=== PATIENT | female | born 1975 | race Caucasian/White ===

== ENCOUNTER 2018-09-06 17:06 | Emergency (ER) | payer OTHER ==
[2018-09-06 17:32] VITALS: BP 149/96
--- NOTE | 2018-09-06 18:08 | EDM.PDOC ---
ED HPI GENERAL MEDICAL PROBLEM - General Chief Complaint: ENT Problem Stated Complaint: EAR IS BLEEDING Time Seen by Provider: 09/06/18 17:45 Source of Information: Reports: Patient History Limitations: Reports: No Limitations - History of Present Illness INITIAL COMMENTS - FREE TEXT/NARRATIVE: 42-year-old female with right ear discomfort, with bleeding over the past 24-48 hours. She's also had some intermittent lower abdominal and pelvic discomfort no dysuria. She has a full physical scheduled in 2 days for a preoperative exam. She has no decreased hearing, or cold symptoms. She has not been swimming or submersed in water. She is not a diabetic Onset: Gradual Duration: Day(s): (Over the past 2 days) - Related Data Allergies Allergy/AdvReac Type Severity Reaction Status Date / Time No Known Allergies Allergy Verified 08/03/18 15:35 Home Meds: Home Meds Cyclobenzaprine [Flexeril] 10 mg PO TID PRN 02/02/16 [History] QUEtiapine [SEROquel XR] 225 mg PO BEDTIME 02/02/16 [History] Sertraline [Zoloft] 200 mg PO DAILY 02/02/16 [History] Venlafaxine [Effexor XR] 2 tab PO BID 02/02/16 [History] ALPRAZolam [Xanax] 0.5 mg PO QID PRN 12/25/17 [History] Hydroxychloroquine Sulfate [Plaquenil] 200 mg PO DAILY 12/25/17 [History] Ibuprofen [Motrin Ib] 800 mg PO TID PRN 12/25/17 [History] Lisinopril/Hydrochlorothiazide [Lisinopril-Hctz 20-12.5 mg Tab] 1 each PO DAILY 12/25/17 [History] Metoprolol Succinate [Toprol Xl] 25 mg PO DAILY 12/25/17 [History] medroxyPROGESTERone Acetate [Depo-Provera] 150 mg IM Q90D 12/25/17 [History] predniSONE [Prednisone] 10 mg PO DAILY 12/25/17 [History] Past Medical History HEENT History: Reports: Impaired Vision Cardiovascular History: Reports: Hypertension Gastrointestinal History: Reports: None Musculoskeletal History: Reports: Arthritis, RA Neurological History: Reports: Migraines Psychiatric History: Reports: Anxiety, Depression Endocrine/Metabolic History: Reports: Obesity/BMI 30+ - Infectious Disease History Infectious Disease History: Reports: Chicken Pox, Measles - Past Surgical History Head Surgeries/Procedures: Reports: None HEENT Surgical History: Reports: None Cardiovascular Surgical History: Reports: None GI Surgical History: Reports: Appendectomy Endocrine Surgical History: Reports: None Neurological Surgical History: Reports: None Musculoskeletal Surgical History: Reports: Other (See Below) Other Musculoskeletal Surgeries/Procedures:: Left rotator cuff repair 2005, 2017. Right rotator cuff repair 2014 Dermatological Surgical History: Reports: None Social & Family History - Family History Cardiac: Reports: Blood Clots/VTE/DVT, Hypertension, [place] Musculoskeletal: Reports: Arthritis Neurological: Reports: Migraines Oncologic: Reports: Lung - Tobacco Use Smoking Status *Q: Never Smoker - Caffeine Use Caffeine Use: Reports: Soda ED ROS ENT - Review of Systems Review Of Systems: See Below Constitutional: Denies: Fever, Chills HEENT: Reports: Ear Discharge (Bleeding from the right ear), Ear Pain Respiratory: Denies: Shortness of Breath, Cough Cardiovascular: Denies: Chest Pain GI/Abdominal: Reports: Abdominal Pain (Lower abdomen and pelvic discomfort intermittent) : Denies: Dysuria, Frequency ED EXAM, ENT - Physical Exam Exam: See Below Exam Limited By: No Limitations General Appearance: Alert, No Apparent Distress Ears: Other (Left tympanic membrane is normal, the right tympanic membrane appears normal but the canal is very reddened, hemorrhagic and swollen) Head: Atraumatic Respiratory/Chest: No Respiratory Distress GI/Abdominal: Non-Tender, Other (Morbidly obese) Course - Vital Signs Last Recorded V/S: Last Vital Signs Temp 97.3 F 09/06/18 17:30 Pulse 106 H 09/06/18 17:30 Resp 14 09/06/18 17:30 BP 149/96 H 09/06/18 17:30 Pulse Ox 97 09/06/18 17:30 - Orders/Labs/Meds Labs: Laboratory Tests 09/06/18 Range/Units 17:23 Urine Color Yellow Urine Appearance Slightly cloudy Urine pH 5.0 (4.5-8.0) Ur Specific [place] 1.025 (1.008-1.030) Urine Protein 30 H (NEGATIVE) mg/dL Urine Glucose (UA) Normal (NEGATIVE) mg/dL Urine Ketones Negative (NEGATIVE) mg/dL Urine Occult Blood Negative (NEGATIVE) Urine Nitrite Negative (NEGATIVE) Urine Bilirubin Negative (NEGATIVE) Urine Urobilinogen Normal (NORMAL) mg/dL Ur Leukocyte Esterase Moderate (NEGATIVE) Urine RBC 0-5 (0-5) Urine WBC 5-10 H (0-5) Ur Epithelial Cells Many Amorphous Sediment Not seen Urine Bacteria Moderate Urine Mucus Moderate Urine Other Meds: Medications Discontinued Medications Generic Name Dose Route Start Last Admin Trade Name Shruthi PRN Reason Stop Dose Admin Ketorolac Tromethamine 60 mg 09/06/18 18:15 09/06/18 18:20 Toradol IM 09/06/18 18:16 60 mg ONETIME ONE Administration - Re-Assessments/Exams Free Text/Narrative Re-Assessment/Exam: 09/06/18 18:06 Patient will be started on Cortisporin ear drops 4 times a day to the right ear , along with Augmentin 875 mg twice daily for 1 week. She'll keep her appointment for her physical in 2 days as scheduled, keep the ear dry. A UA was obtained which showed no evidence of infection. Departure - Departure Time of Disposition: 18:20 Disposition: Home, Self-Care 01 Condition: Good Clinical Impression: Right otitis externa Qualifiers: Otitis externa type: hemorrhagic Chronicity: acute Qualified Code(s): H60.321 - Hemorrhagic otitis externa, right ear - Discharge Information Instructions: Otitis Externa, [id number] Referrals: Shayne Varela PA-C [Primary Care Provider] - Forms: ED Department Discharge Care Plan Goals: Use drops 4 times a day for the next 5-7 days, and take antibiotic twice daily with food for 7 days. Try to keep the ear dry, and return if worsening despite treatment. Otherwise keep your appointment for your physical on Saturday as scheduled.
[2018-09-06] MEDS ORDERED: Ketorolac 60 MG/2 ML SDV IM ONE (18:15)
== END 2018-09-06 18:21 | disposition home or self-care (01) ==
LOC: JP.ED 17:06
DX: H60.321 Hemorrhagic otitis externa, right ear (principal); I10 Essential (primary) hypertension; F41.9 Anxiety disorder, unspecified; F32.9 Major depressive disorder, single episode, unspecified; Z79.899 Other long term (current) drug therapy
CPT/HCPCS: 81001; 96372; 99283; J1885

== ENCOUNTER 2018-12-13 12:09 | Emergency (ER) | payer OTHER ==
[2018-12-13 12:25] VITALS: BP 104/40
--- NOTE | 2018-12-13 13:44 | EDM.PDOCBH ---
ED HPI GENERAL MEDICAL PROBLEM - General Chief Complaint: Behavioral/Psych Stated Complaint: DIZZY, HOLUCINATING Time Seen by Provider: 12/13/18 13:40 Source of Information: Reports: Patient History Limitations: Reports: No Limitations - History of Present Illness INITIAL COMMENTS - FREE TEXT/NARRATIVE: pt was found by her mother halluncinating and her speech was very slurred. She has not taken any new meds or her doses have not been changed recently. Onset: Today, Other (pt was found by her mother hallucinating. ) Duration: Hour(s): Location: Reports: Head Associated Symptoms: Reports: Confusion - Related Data Allergies Allergy/AdvReac Type Severity Reaction Status Date / Time No Known Allergies Allergy Verified 12/13/18 12:26 Home Meds: Home Meds Cyclobenzaprine [Flexeril] 10 mg PO TID PRN 02/02/16 [History] QUEtiapine [SEROquel XR] 225 mg PO BEDTIME 02/02/16 [History] Sertraline [Zoloft] 200 mg PO DAILY 02/02/16 [History] Venlafaxine [Effexor XR] 2 tab PO BID 02/02/16 [History] ALPRAZolam [Xanax] 0.5 mg PO QID PRN 12/25/17 [History] Hydroxychloroquine Sulfate [Plaquenil] 200 mg PO DAILY 12/25/17 [History] Ibuprofen [Motrin Ib] 800 mg PO TID PRN 12/25/17 [History] Lisinopril/Hydrochlorothiazide [Lisinopril-Hctz 20-12.5 mg Tab] 1 each PO DAILY 12/25/17 [History] Metoprolol Succinate [Toprol Xl] 25 mg PO DAILY 12/25/17 [History] medroxyPROGESTERone Acetate [Depo-Provera] 150 mg IM Q90D 12/25/17 [History] predniSONE [Prednisone] 10 mg PO DAILY 12/25/17 [History] oxyCODONE HCl/Acetaminophen [Oxycodone-Acetaminophen 5-325] 1 cap PO QID [History] Past Medical History HEENT History: Reports: Impaired Vision Cardiovascular History: Reports: Hypertension Gastrointestinal History: Reports: None Musculoskeletal History: Reports: Arthritis, RA Neurological History: Reports: Migraines Psychiatric History: Reports: Anxiety, Bipolar, Depression Endocrine/Metabolic History: Reports: Obesity/BMI 30+ - Infectious Disease History Infectious Disease History: Reports: Chicken Pox, Measles - Past Surgical History Head Surgeries/Procedures: Reports: None HEENT Surgical History: Reports: None Cardiovascular Surgical History: Reports: None GI Surgical History: Reports: Appendectomy Endocrine Surgical History: Reports: None Neurological Surgical History: Reports: None Musculoskeletal Surgical History: Reports: Other (See Below) Other Musculoskeletal Surgeries/Procedures:: Left rotator cuff repair 2005, 2017. Right rotator cuff repair 2013 Dermatological Surgical History: Reports: None Social & Family History - Family History Cardiac: Reports: Blood Clots/VTE/DVT, Hypertension, [place] Musculoskeletal: Reports: Arthritis Neurological: Reports: Migraines Oncologic: Reports: Lung - Tobacco Use Smoking Status *Q: Never Smoker - Caffeine Use Caffeine Use: Reports: Soda - Recreational Drug Use Recreational Drug Use: No ED ROS GENERAL - Review of Systems Review Of Systems: See Below Constitutional: Reports: No Symptoms HEENT: Reports: Other (mouth is very dry and her speech is slurry) Respiratory: Reports: No Symptoms Cardiovascular: Reports: No Symptoms Endocrine: Reports: No Symptoms GI/Abdominal: Reports: No Symptoms : Reports: No Symptoms Musculoskeletal: Reports: No Symptoms Skin: Reports: No Symptoms ED EXAM, BEHAVIORAL HEALTH - Physical Exam Exam: See Below Text/Narrative:: pt arrived with a history of hallucinating and being quite confused. She does have some depression and psych problems. She has not hallucinated in the past. She is on oxycodone and her bottle was filled on Saturday of this week and 53 tabs are gone. She is on plaequneil and motrin for her RA. Exam Limited By: Other (pt has a very dry mouth and her speech is slurred. She is having trouble giving answers --slow to respond.) General Appearance: Alert, Anxious, Other (Pt seemes agitated. ) Ears: Normal TMs Nose: Normal Inspection Throat/Mouth: Normal Inspection Head: Atraumatic Neck: Normal Inspection Respiratory/Chest: No Respiratory Distress Cardiovascular: Regular Rate, Rhythm GI/Abdominal: Soft, Non-Tender Rectal (Female) Exam: Deferred Back Exam: Normal Inspection Extremities: Normal Inspection Neurological: Alert, Normal Cognition COURSE, BEHAVIORAL HEALTH COMP - Course Vital Signs: Last Vital Signs Temp 35.7 C 12/13/18 12:24 Pulse 119 H 12/13/18 12:24 Resp 18 12/13/18 12:24 BP 104/40 L 12/13/18 12:24 Pulse Ox 96 12/13/18 12:24 Orders, Labs, Meds: Active Orders 24 hr Category Date Time Status Sodium Chloride 0.9% [Normal Saline] 1,000 ml Med 12/13/18 13:45 Active IV ASDIRECTED Sodium Chloride 0.9% [Normal Saline] 1,000 ml Med 12/13/18 14:45 Active IV ASDIRECTED Medication Orders Sodium Chloride (Normal Saline) 1,000 mls @ 999 mls/hr IV ASDIRECTED [facility] Last Admin: 12/13/18 14:04 Dose: 999 mls/hr Sodium Chloride (Normal Saline) 1,000 mls @ 999 mls/hr IV ASDIRECTED [facility] Laboratory Tests 12/13/18 12/13/18 12/13/18 Range/Units 13:07 13:07 13:07 WBC 12.8 H (4.5-11.0) K/uL RBC 3.68 (3.30-5.50) M/uL Hgb 10.3 L (12.0-15.0) g/dL Hct 32.3 L (36.0-48.0) % MCV 88 (80-98) fL MCH 28 (27-31) pg MCHC 32 (32-36) % Plt Count 423 H (150-400) K/uL Neut % (Auto) 91 H (36-66) % Lymph % (Auto) 2 L (24-44) % [place] % (Auto) 7 H (2-6) % Eos % (Auto) 0 L (2-4) % Baso % (Auto) 0 (0-1) % PT (9.5-12.0) sec INR (0.80-1.20) APTT (27.0-36.0) sec Sodium 135 L (140-148) mmol/L Potassium 4.1 (3.6-5.2) mmol/L Chloride 96 L (100-108) mmol/L Carbon Dioxide 19 L (21-32) mmol/L Anion Gap 24.1 H (5.0-14.0) mmol/L BUN 62 H (7-18) mg/dL Creatinine 9.5 H* (0.6-1.0) mg/dL Est Cr Clr Drug Dosing 7.62 mL/min Estimated GFR (MDRD) 4 L (>60) Glucose 91 (74-106) mg/dL Calcium 8.6 (8.5-10.1) mg/dL Total Bilirubin 0.2 (0.2-1.0) mg/dL AST 28 (15-37) U/L ALT 30 (12-78) U/L Alkaline Phosphatase 94 (46-116) U/L Total Protein 7.3 (6.4-8.2) g/dL Albumin 2.9 L (3.4-5.0) g/dL Globulin 4.4 H (2.3-3.5) g/dL Albumin/Globulin Ratio 0.7 L (1.2-2.2) TSH, Ultra Sensitive (0.358-3.740) uIU/mL Urine Color Urine Appearance Urine pH (4.5-8.0) Ur Specific [place] (1.008-1.030) Urine Protein (NEGATIVE) mg/dL Urine Glucose (UA) (NEGATIVE) mg/dL Urine Ketones (NEGATIVE) mg/dL Urine Occult Blood (NEGATIVE) Urine Nitrite (NEGATIVE) Urine Bilirubin (NEGATIVE) Urine Urobilinogen (NORMAL) mg/dL Ur Leukocyte Esterase (NEGATIVE) Urine RBC (0-5) Urine WBC (0-5) Ur Epithelial Cells Amorphous Sediment Urine Bacteria Urine Mucus Urine Opiates Screen (NEGATIVE) Ur Oxycodone Screen (NEGATIVE) Urine Methadone Screen (NEGATIVE) Ur Propoxyphene Screen (NEGATIVE) Acetaminophen (10.0-30.0) ug/mL Ur Barbiturates Screen (NEGATIVE) Ur Tricyclics Screen (NEGATIVE) Ur Phencyclidine Scrn (NEGATIVE) Ur Amphetamine Screen (NEGATIVE) U Methamphetamines Scrn (NEGATIVE) Urine MDMA Screen (NEGATIVE) U Benzodiazepines Scrn (NEGATIVE) U Cocaine Metab Screen (NEGATIVE) U Marijuana (THC) Screen (NEGATIVE) Ethyl Alcohol < 3 mg/dL 12/13/18 12/13/18 12/13/18 Range/Units 13:46 13:47 13:47 WBC (4.5-11.0) K/uL RBC (3.30-5.50) M/uL Hgb (12.0-15.0) g/dL Hct (36.0-48.0) % MCV (80-98) fL MCH (27-31) pg MCHC (32-36) % Plt Count (150-400) K/uL Neut % (Auto) (36-66) % Lymph % (Auto) (24-44) % [place] % (Auto) (2-6) % Eos % (Auto) (2-4) % Baso % (Auto) (0-1) % PT (9.5-12.0) sec INR (0.80-1.20) APTT (27.0-36.0) sec Sodium (140-148) mmol/L Potassium (3.6-5.2) mmol/L Chloride (100-108) mmol/L Carbon Dioxide (21-32) mmol/L Anion Gap (5.0-14.0) mmol/L BUN (7-18) mg/dL Creatinine (0.6-1.0) mg/dL Est Cr Clr Drug Dosing mL/min Estimated GFR (MDRD) (>60) Glucose (74-106) mg/dL Calcium (8.5-10.1) mg/dL Total Bilirubin (0.2-1.0) mg/dL AST (15-37) U/L ALT (12-78) U/L Alkaline Phosphatase (46-116) U/L Total Protein (6.4-8.2) g/dL Albumin (3.4-5.0) g/dL Globulin (2.3-3.5) g/dL Albumin/Globulin Ratio (1.2-2.2) TSH, Ultra Sensitive 0.781 (0.358-3.740) uIU/mL Urine Color Yellow Urine Appearance Cloudy Urine pH 5.0 (4.5-8.0) Ur Specific [place] 1.025 (1.008-1.030) Urine Protein Trace (NEGATIVE) mg/dL Urine Glucose (UA) Normal (NEGATIVE) mg/dL Urine Ketones Negative (NEGATIVE) mg/dL Urine Occult Blood Large (NEGATIVE) Urine Nitrite Negative (NEGATIVE) Urine Bilirubin Negative (NEGATIVE) Urine Urobilinogen Normal (NORMAL) mg/dL Ur Leukocyte Esterase Large (NEGATIVE) Urine RBC 20-30 H (0-5) Urine WBC >100 H (0-5) Ur Epithelial Cells Many Amorphous Sediment Not seen Urine Bacteria Many Urine Mucus Not seen Urine Opiates Screen Presumptive positive H (NEGATIVE) Ur Oxycodone Screen Presumptive positive H (NEGATIVE) Urine Methadone Screen Negative (NEGATIVE) Ur Propoxyphene Screen Negative (NEGATIVE) Acetaminophen (10.0-30.0) ug/mL Ur Barbiturates Screen Negative (NEGATIVE) Ur Tricyclics Screen Presumptive positive H (NEGATIVE) Ur Phencyclidine Scrn Negative (NEGATIVE) Ur Amphetamine Screen Negative (NEGATIVE) U Methamphetamines Scrn Presumptive positive H (NEGATIVE) Urine MDMA Screen Negative (NEGATIVE) U Benzodiazepines Scrn Presumptive positive H (NEGATIVE) U Cocaine Metab Screen Negative (NEGATIVE) U Marijuana (THC) Screen Negative (NEGATIVE) Ethyl Alcohol mg/dL 12/13/18 12/13/18 Range/Units 14:47 14:55 WBC (4.5-11.0) K/uL RBC (3.30-5.50) M/uL Hgb (12.0-15.0) g/dL Hct (36.0-48.0) % MCV (80-98) fL MCH (27-31) pg MCHC (32-36) % Plt Count (150-400) K/uL Neut % (Auto) (36-66) % Lymph % (Auto) (24-44) % [place] % (Auto) (2-6) % Eos % (Auto) (2-4) % Baso % (Auto) (0-1) % PT 10.9 (9.5-12.0) sec INR 0.99 (0.80-1.20) APTT 39.4 H (27.0-36.0) sec Sodium (140-148) mmol/L Potassium (3.6-5.2) mmol/L Chloride (100-108) mmol/L Carbon Dioxide (21-32) mmol/L Anion Gap (5.0-14.0) mmol/L BUN (7-18) mg/dL Creatinine (0.6-1.0) mg/dL Est Cr Clr Drug Dosing mL/min Estimated GFR (MDRD) (>60) Glucose (74-106) mg/dL Calcium (8.5-10.1) mg/dL Total Bilirubin (0.2-1.0) mg/dL AST (15-37) U/L ALT (12-78) U/L Alkaline Phosphatase (46-116) U/L Total Protein (6.4-8.2) g/dL Albumin (3.4-5.0) g/dL Globulin (2.3-3.5) g/dL Albumin/Globulin Ratio (1.2-2.2) TSH, Ultra Sensitive (0.358-3.740) uIU/mL Urine Color Urine Appearance Urine pH (4.5-8.0) Ur Specific [place] (1.008-1.030) Urine Protein (NEGATIVE) mg/dL Urine Glucose (UA) (NEGATIVE) mg/dL Urine Ketones (NEGATIVE) mg/dL Urine Occult Blood (NEGATIVE) Urine Nitrite (NEGATIVE) Urine Bilirubin (NEGATIVE) Urine Urobilinogen (NORMAL) mg/dL Ur Leukocyte Esterase (NEGATIVE) Urine RBC (0-5) Urine WBC (0-5) Ur Epithelial Cells Amorphous Sediment Urine Bacteria Urine Mucus Urine Opiates Screen (NEGATIVE) Ur Oxycodone Screen (NEGATIVE) Urine Methadone Screen (NEGATIVE) Ur Propoxyphene Screen (NEGATIVE) Acetaminophen < 2.0 L (10.0-30.0) ug/mL Ur Barbiturates Screen (NEGATIVE) Ur Tricyclics Screen (NEGATIVE) Ur Phencyclidine Scrn (NEGATIVE) Ur Amphetamine Screen (NEGATIVE) U Methamphetamines Scrn (NEGATIVE) Urine MDMA Screen (NEGATIVE) U Benzodiazepines Scrn (NEGATIVE) U Cocaine Metab Screen (NEGATIVE) U Marijuana (THC) Screen (NEGATIVE) Ethyl Alcohol mg/dL Medications Generic Name Dose Route Start Last Admin Trade Name Freq PRN Reason Stop Dose Admin Sodium Chloride 1,000 mls @ 999 mls/hr 12/13/18 13:45 12/13/18 14:04 Normal Saline IV 999 mls/hr ASDIRECTED [facility] Administration Sodium Chloride 1,000 mls @ 999 mls/hr 12/13/18 14:45 Normal Saline IV ASDIRECTED [facility] Medical Clearance: 12/13/18 15:16 pt does not have a elevated tylenol level She has a markedly positive drug screen for methand benzadiapines. INR and ptt , Her creatinine is 9.5 and her GFR is 4. Her urine does look very infected. 12/13/18 15:18 12/13/18 15:18 12/13/18 15:19 12/13/18 15:19 Departure - Departure Time of Disposition: 15:21 Disposition: DC/Tfer to Acute Hospital 02 Condition: Fair Clinical Impression: Renal insufficiency, Dehydration, Hallucination - Discharge Information Referrals: Shayne Varela PA-C [Primary Care Provider] - Forms: ED Department Discharge Care Plan Goals: transfer to . - My Orders Last 24 Hours: My Active Orders 12/13/18 13:45 Sodium Chloride 0.9% [Normal Saline] 1,000 ml IV ASDIRECTED 12/13/18 14:45 Sodium Chloride 0.9% [Normal Saline] 1,000 ml IV ASDIRECTED - Assessment/Plan Last 24 Hours: My Active Orders 12/13/18 13:45 Sodium Chloride 0.9% [Normal Saline] 1,000 ml IV ASDIRECTED 12/13/18 14:45 Sodium Chloride 0.9% [Normal Saline] 1,000 ml IV ASDIRECTED
[2018-12-13] MEDS ORDERED: Sodium Chloride 0.9% 1,000 ML IV SCH ×2 (13:45→14:45)
[2018-12-13] MEDS ORDERED: cefTRIAXone 1 GM in Sodium Chloride 0.9% 50 ML IV ONE (15:20)
== END 2018-12-13 15:49 ==
LOC: JP.ED 12:09
DX: E86.0 Dehydration (principal); R44.3 Hallucinations, unspecified; N28.9 Disorder of kidney and ureter, unspecified; E66.9 Obesity, unspecified; I10 Essential (primary) hypertension; Z79.899 Other long term (current) drug therapy; Z68.42 Body mass index [BMI] 45.0-49.9, adult
CPT/HCPCS: 36415; 80053; 80305; 81001; 84443; 85025; 85610; 85730; 87086; 87088; 96361; 96374; 99285; G0480; J0696; J7030; J7050

== ENCOUNTER 2020-03-19 15:59 | Emergency (ER) | payer OTHER ==
[2020-03-19 16:18] VITALS: BP 170/92; PULSE 76
[2020-03-19] MEDS ORDERED: Lidocaine 1% with EPINEPHrine 1:100,000 50 ML MDV INFILT ONE (16:36)
--- NOTE | 2020-03-19 17:15 | EDM.PDOC ---
ED HPI GENERAL MEDICAL PROBLEM - General Chief Complaint: Skin Complaint Stated Complaint: CYST ON RIGHT BUTTOCK Time Seen by Provider: 03/19/20 16:30 Source of Information: Reports: Patient History Limitations: Reports: No Limitations - History of Present Illness INITIAL COMMENTS - FREE TEXT/NARRATIVE: 44-year-old female with a chronic cystic lesion on her right buttock, she wants it looked at because it is not improving. Is been bothering her for 2 months, she has been picking at it a lot over the past 2 days and it has become sore but there is no drainage. She has no fevers or chills. Onset: Gradual Duration: Chronic Location: Reports: Other (Right buttock cheek) Associated Symptoms: Reports: No Other Symptoms. Denies: Diaphoresis, Fever/Chills - Related Data Allergies Allergy/AdvReac Type Severity Reaction Status Date / Time No Known Allergies Allergy Verified 03/19/20 16:21 Home Meds: Home Meds QUEtiapine [SEROquel XR] 225 mg PO BEDTIME 02/02/16 [History] Sertraline [Zoloft] 200 mg PO DAILY 02/02/16 [History] ALPRAZolam [Xanax] 0.5 mg PO QID PRN 12/25/17 [History] Metoprolol Succinate [Toprol Xl] 25 mg PO DAILY 12/25/17 [History] medroxyPROGESTERone Acetate [Depo-Provera] 150 mg IM Q90D 12/25/17 [History] oxyCODONE HCl/Acetaminophen [Oxycodone-Acetaminophen 5-325] 1 cap PO QID 12/13/18 [History] Divalproex Sodium [Depakote] 1 tab PO BID 03/19/20 [History] busPIRone HCl [Buspirone HCl] 1 tab PO BID 03/19/20 [History] Past Medical History HEENT History: Reports: Impaired Vision Cardiovascular History: Reports: Hypertension Gastrointestinal History: Reports: None Musculoskeletal History: Reports: Arthritis, RA Neurological History: Reports: Migraines Psychiatric History: Reports: Anxiety, Bipolar, Depression Endocrine/Metabolic History: Reports: Obesity/BMI 30+ - Infectious Disease History Infectious Disease History: Reports: Chicken Pox, Measles - Past Surgical History Head Surgeries/Procedures: Reports: None HEENT Surgical History: Reports: None Cardiovascular Surgical History: Reports: None GI Surgical History: Reports: Appendectomy Endocrine Surgical History: Reports: None Neurological Surgical History: Reports: None Musculoskeletal Surgical History: Reports: Other (See Below) Other Musculoskeletal Surgeries/Procedures:: Left rotator cuff repair 2005, 2017. Right rotator cuff repair 2013 Dermatological Surgical History: Reports: None Social & Family History - Family History Cardiac: Reports: Blood Clots/VTE/DVT, Hypertension, [place] Musculoskeletal: Reports: Arthritis Neurological: Reports: Migraines Oncologic: Reports: Lung - Tobacco Use Smoking Status *Q: Never Smoker - Caffeine Use Caffeine Use: Reports: Soda ED ROS GENERAL - Review of Systems Review Of Systems: See Below Constitutional: Denies: Fever, Chills, Malaise Respiratory: Denies: Shortness of Breath Cardiovascular: Denies: Chest Pain GI/Abdominal: Denies: Abdominal Pain, Nausea, Vomiting Neurological: Reports: No Symptoms ED EXAM, SKIN/RASH Exam: See Below Exam Limited By: No Limitations General Appearance: Alert, No Apparent Distress Respiratory/Chest: No Respiratory Distress Extremities: Other (On the center of the right buttock cheek, there is a firm 3 cm wide nodular mass that is slightly tender with a granulated circular lesion overriding, slightly tender to palpation but more firm than fluctuant.) Course - Vital Signs Last Recorded V/S: Last Vital Signs Temp 97.1 F 03/19/20 16:27 Pulse 76 03/19/20 16:27 Resp 16 03/19/20 16:27 BP 170/92 H 03/19/20 16:27 Pulse Ox 97 03/19/20 16:27 - Orders/Labs/Meds Orders: Active Orders 24 hr Category Date Time Status CULTURE WOUND + SMEAR [RM] Stat Lab 03/19/20 17:26 Results Meds: Medications Discontinued Medications Generic Name Dose Route Start Last Admin Trade Name Freq PRN Reason Stop Dose Admin Lidocaine/Epinephrine 30 ml 03/19/20 16:36 03/19/20 16:44 Xylocaine 1% With Epinephrine 1:100,000 INFILT 03/19/20 16:37 30 ml ONETIME ONE Administration - Re-Assessments/Exams Free Text/Narrative Re-Assessment/Exam: 03/19/20 17:13 Area was sterilized with Betadine, #11 scalpel was used to incise the center of the wound and it was opened with a curved needle zhang. Only real thick granulation tissue was expelled with some blood, no purulent material or pus. A culture was passed into the wound and sent to lab. It was packed open with 1/4 inch iodoform gauze which can be removed in the next 1 to 2 days. If the culture returns with something that can be treated, we will contact the patient. Otherwise warm soaks once to twice daily and increase activity as tolerated. Departure - Departure Time of Disposition: 17:39 Disposition: Home, Self-Care 01 Clinical Impression: EIC (epidermal inclusion cyst) - Discharge Information Instructions: Contact Dermatitis, [id number] Referrals: Shayne Varela PA-C [Primary Care Provider] - Forms: ED Department Discharge Care Plan Goals: Warm sitz bath once daily for the next several days and remove packing over the next 2 days. Recheck with surgery at the clinic for follow-up if not improving satisfactorily and we will contact you with culture results if treatment is necessary. Sepsis Event Note (ED) - Evaluation Sepsis Screening Result: No Definite Risk - Focused Exam Vital Signs: Vital Signs Temp Pulse Resp BP Pulse Ox 03/19/20 16:27 97.1 F 76 16 170/92 H 97 03/19/20 16:16 97.1 F 76 16 170/92 H 97 - My Orders Last 24 Hours: My Active Orders 03/19/20 17:26 CULTURE WOUND + SMEAR [RM] Stat - Assessment/Plan Last 24 Hours: My Active Orders 03/19/20 17:26 CULTURE WOUND + SMEAR [RM] Stat
== END 2020-03-19 17:40 | disposition home or self-care (01) ==
LOC: JP.ED 15:59
DX: L72.0 Epidermal cyst (principal); I10 Essential (primary) hypertension; F31.9 Bipolar disorder, unspecified; F41.9 Anxiety disorder, unspecified; E66.9 Obesity, unspecified; Z68.42 Body mass index [BMI] 45.0-49.9, adult; Z79.899 Other long term (current) drug therapy
CPT/HCPCS: 10060; 87070; 87077; 87186; 87205; 99283-25

== ENCOUNTER 2020-07-06 17:05 | Emergency (ER) | payer OTHER ==
[2020-07-06 20:34] VITALS: BP 163/92; PULSE 75
--- NOTE | 2020-07-06 20:36 | EDM.PDOC ---
ED HPI GENERAL MEDICAL PROBLEM - General Chief Complaint: Lower Extremity Injury/Pain Stated Complaint: RIGHT LEG PAIN Time Seen by Provider: 07/06/20 19:11 Source of Information: Reports: Patient, Old Records History Limitations: Reports: No Limitations - History of Present Illness INITIAL COMMENTS - FREE TEXT/NARRATIVE: Martha is a 44-year-old female sent in from the [facility] in [place] for evaluation of an elevated D-dimer. The patient was seen by Lashay Burgess APRN, CNP earlier today after presenting with complaint of having bilateral leg swelling that started on 07/03/2020 and persisted in the right lower leg greater than left lower leg with some shortness of breath with exertion. The patient has been attributing her dyspnea on exertion to her obesity and deconditioning, however, her mother reports that the patient has to stop going up her stairway from her apartment which is only 6 steps to catch her breath. The patient has a history of being hospitalized for acute kidney failure in November 2019 which was attributed to drinking too much soda, energy drinks, and caffeinated beverages. Since then her kidney function has normalized. The patient denies any history of chest pain or resting dyspnea. She has not had any fever, chills, cough, nausea, vomiting, or diarrhea. She has not had any headache or muscle aches. She has not developed any rash. Her evaluation earlier today in the clinic demonstrated an elevation of her D-dimer. The patient underwent bilateral lower extremity venous duplex ultrasound that did not demonstrate any evidence of an acute deep venous thrombosis. The patient was sent to the ED for further evaluation of the elevated D-dimer. - Related Data Allergies Allergy/AdvReac Type Severity Reaction Status Date / Time No Known Allergies Allergy Verified 03/19/20 16:21 Home Meds: Home Meds QUEtiapine [SEROquel XR] 225 mg PO BEDTIME 02/02/16 [History] Sertraline [Zoloft] 200 mg PO DAILY 02/02/16 [History] ALPRAZolam [Xanax] 0.5 mg PO QID PRN 12/25/17 [History] Metoprolol Succinate [Toprol Xl] 25 mg PO DAILY 12/25/17 [History] medroxyPROGESTERone Acetate [Depo-Provera] 150 mg IM Q90D 12/25/17 [History] Divalproex Sodium [Depakote] 1 tab PO BID 03/19/20 [History] busPIRone HCl [Buspirone HCl] 1 tab PO BID 03/19/20 [History] Furosemide [Lasix] 20 mg PO DAILY #30 tab 07/06/20 [Rx] Past Medical History HEENT History: Reports: Impaired Vision Cardiovascular History: Reports: Hypertension Gastrointestinal History: Reports: None Musculoskeletal History: Reports: Arthritis, RA Neurological History: Reports: Migraines Psychiatric History: Reports: Anxiety, Bipolar, Depression Endocrine/Metabolic History: Reports: Obesity/BMI 30+ - Infectious Disease History Infectious Disease History: Reports: Chicken Pox, Measles - Past Surgical History Head Surgeries/Procedures: Reports: None HEENT Surgical History: Reports: None Cardiovascular Surgical History: Reports: None GI Surgical History: Reports: Appendectomy Endocrine Surgical History: Reports: None Neurological Surgical History: Reports: None Musculoskeletal Surgical History: Reports: Other (See Below) Other Musculoskeletal Surgeries/Procedures:: Left rotator cuff repair 2005, 2016. Right rotator cuff repair 2013 Dermatological Surgical History: Reports: None Social & Family History - Family History Cardiac: Reports: Blood Clots/VTE/DVT, Hypertension, [place] Musculoskeletal: Reports: Arthritis Neurological: Reports: Migraines Oncologic: Reports: Lung - Tobacco Use Tobacco Use Status *Q: Never Tobacco User - Caffeine Use Caffeine Use: Reports: Coffee - Recreational Drug Use Recreational Drug Use: No Review of Systems - Review of Systems Review Of Systems: See Below Constitutional: Reports: No Symptoms Eyes: Reports: No Symptoms Ears: Reports: No Symptoms Nose: Reports: No Symptoms Mouth/Throat: Reports: No Symptoms Respiratory: Reports: Shortness of Breath Cardiovascular: Reports: Edema (Bilateral lower extremity edema starting on 07/03/2020 and has been slowly improving since.) GI/Abdominal: Reports: No Symptoms Genitourinary: Reports: No Symptoms Musculoskeletal: Reports: No Symptoms Skin: Reports: No Symptoms Neurological: Reports: No Symptoms Psychiatric: Reports: No Symptoms ED EXAM, GENERAL - Physical Exam Exam: See Below Exam Limited By: No Limitations General Appearance: Alert, WD/WN, No Apparent Distress Eye Exam: Bilateral Eye: EOMI, PERRL Ears: Normal External Exam Throat/Mouth: Normal Inspection, Normal Lips, Normal Teeth, Normal Gums, Normal Oropharynx, Normal Voice, No Airway Compromise Head: Atraumatic, Normocephalic Neck: Normal Inspection, Supple, Non-Tender, Full Range of Motion Respiratory/Chest: No Respiratory Distress, Lungs Clear, Normal Breath Sounds, No Accessory Muscle Use, Chest Non-Tender Cardiovascular: Normal Peripheral Pulses, Regular Rate, Rhythm, No JVD, No Murmur, Other (1-2+ edema in the lower extremities right greater than left.) Peripheral Pulses: 2+: Radial (L), Radial (R), Posterior Tibial (L), Posterior Tibial (R) GI/Abdominal: Normal Bowel Sounds, Soft, Non-Tender, No Organomegaly, No Distention, No Abnormal Bruit, No Mass (Female) Exam: Deferred Rectal (Female) Exam: Deferred Back Exam: Normal Inspection, Full Range of Motion Extremities: Normal Inspection, Normal Range of Motion, Non-Tender, Normal Capillary Refill, Pedal Edema. No: Juanita's Sign, Increased Warmth, Redness Neurological: Alert, Oriented, CN II-XII Intact, Normal Cognition, Normal Gait, No Motor/Sensory Deficits Psychiatric: Normal Affect, Normal Mood Skin Exam: Warm, Dry, Intact, Normal Color, No Rash Lymphatic: No Adenopathy #1 Interpretation EKG Date: 07/06/20 Time: 19:08 Rhythm: NSR [place]: Normal P-Wave: Present QRS: Normal ST-T: Normal QT: Normal Comparison: NA - No Prior EKG Course - Vital Signs Last Recorded V/S: Last Vital Signs Temp 36.8 C 07/06/20 18:37 Pulse 75 07/06/20 19:15 Resp 16 07/06/20 18:37 BP 163/92 H 07/06/20 19:15 Pulse Ox 96 07/06/20 18:37 - Orders/Labs/Meds Orders: Active Orders 24 hr Category Date Time Status VL Duplex Lwr Ext Veins Ltd Rt [US] Stat Exams 07/06/20 18:46 Stop Req EKG 12 Lead [EK] Routine Ther 07/06/20 19:01 Ordered Labs: Laboratory Tests 07/06/20 07/06/20 Range/Units 19:09 19:09 WBC 6.7 (4.5-11.0) K/uL RBC 4.28 (3.30-5.50) M/uL Hgb 12.1 (12.0-15.0) g/dL Hct 38.1 (36.0-48.0) % MCV 89 (80-98) fL MCH 28 (27-31) pg MCHC 32 (32-36) % Plt Count 356 (150-400) K/uL Neut % (Auto) 69 H (36-66) % Lymph % (Auto) 18 L (24-44) % [place] % (Auto) 9 H (2-6) % Eos % (Auto) 4 (2-4) % Baso % (Auto) 0 (0-1) % Sodium 139 L (140-148) mmol/L Potassium 3.3 L (3.6-5.2) mmol/L Chloride 105 (100-108) mmol/L Carbon Dioxide 24 (21-32) mmol/L Anion Gap 13.3 (5.0-14.0) mmol/L BUN 6 L (7-18) mg/dL Creatinine 0.7 (0.6-1.0) mg/dL Est Cr Clr Drug Dosing 102.38 mL/min Estimated GFR (MDRD) > 60 (>60) Glucose 111 H (74-106) mg/dL Calcium 8.0 L D (8.5-10.1) mg/dL Total Bilirubin 0.1 L (0.2-1.0) mg/dL AST 17 (15-37) U/L ALT 19 (12-78) U/L Alkaline Phosphatase 64 (46-116) U/L Troponin I < 0.017 (0.000-0.056) ng/mL NT-Pro-B Natriuret Pep 1314 H (5-125) pg/mL Total Protein 6.1 L (6.4-8.2) g/dL Albumin 2.9 L (3.4-5.0) g/dL Globulin 3.2 (2.3-3.5) g/dL Albumin/Globulin Ratio 0.9 L (1.2-2.2) - Re-Assessments/Exams Free Text/Narrative Re-Assessment/Exam: 07/06/20 20:34 Martha is a 44-year-old female presenting to the ED for evaluation of an elevated D-dimer in the presence of bilateral lower extremity edema. She was seen by her primary in the clinic earlier today who was concerned that she had a DVT and ordered a D-dimer as well as a bilateral lower extremity ultrasound. The ultrasound failed to demonstrate any evidence for acute deep venous thrombosis. The patient was sent to the ED for further evaluation. On exam, she has a normal cardiopulmonary exam. She does have 1-2+ edema in the lower extremities. The right lower extremity is slightly larger than the left lower extremity. There is no jugular venous distention. Labs were obtained and showed elevation in her pro natruretic brain peptide at 1413 signifying congestive heart failure. The patient will likely need to follow-up with her primary care provider and undergo an echocardiogram as well as repeat labs as I am going to start her on Lasix 20 mg daily to help diurese her. Patient may also benefit from cardiac rehab to better condition her heart. Indications to return to the ED were discussed at this time she is suitable for discharge in satisfactory condition. Departure - Departure Time of Disposition: 20:31 Disposition: Home, Self-Care 01 Condition: Good Clinical Impression: Peripheral edema Congestive heart failure (CHF) Qualifiers: Heart failure type: unspecified Heart failure chronicity: acute Qualified Code(s): I50.9 - Heart failure, unspecified - Discharge Information *PRESCRIPTION DRUG MONITORING PROGRAM REVIEWED*: Not Applicable *COPY OF PRESCRIPTION DRUG MONITORING REPORT IN PATIENT SANTOS: Not Applicable Prescriptions: Furosemide [Lasix] 20 mg PO DAILY #30 tab Instructions: Heart Failure, Self Care, Iyer-zi-Aakm, Heart Failure Action Plan, Heart Failure Eating Plan Referrals: Shayne Varela PA-C [Primary Care Provider] - Forms: ED Department Discharge Care Plan Goals: I would like you to follow-up with a primary care provider for further testing including a recheck of your pro natruretic brain peptide and to obtain an echocardiogram to assess your heart and determine the cause of your heart failure. You may also benefit from cardiac rehab to lessen the frequency of recurrence of your heart failure. I am starting you on Lasix 20 mg every morning to help get the extra fluid off. You will need to have a recheck of your kidney function and potassium after initiating this to make sure you do not become depleted. Please return to the emergency room immediately should you develop any significant shortness of breath, chest pain, nausea or vomiting, or worsening of edema. Sepsis Event Note (ED) - Evaluation Sepsis Screening Result: No Definite Risk - Focused Exam Vital Signs: Vital Signs Temp Pulse Resp BP Pulse Ox 07/06/20 19:15 75 163/92 H 07/06/20 18:37 36.8 C 86 16 163/90 H 96 - Problem List & Annotations (1) Congestive heart failure (CHF) SNOMED Code(s): 68264812 Code(s): I50.9 - HEART FAILURE, UNSPECIFIED Status: Acute Priority: High Qualifiers: Heart failure type: unspecified Heart failure chronicity: acute Qualified Code(s): I50.9 - Heart failure, unspecified - Problem List Review Problem List Initiated/Reviewed/Updated: Yes - My Orders Last 24 Hours: My Active Orders 07/06/20 18:46 VL Duplex Lwr Ext Veins Ltd Rt [US] Stat 07/06/20 19:01 EKG 12 Lead [EK] Routine - Assessment/Plan Last 24 Hours: My Active Orders 07/06/20 18:46 VL Duplex Lwr Ext Veins Ltd Rt [US] Stat 07/06/20 19:01 EKG 12 Lead [EK] Routine
== END 2020-07-06 20:44 | disposition home or self-care (01) ==
LOC: JP.ED 17:05
DX: I11.0 Hypertensive heart disease with heart failure (principal); I50.9 Heart failure, unspecified; M06.9 Rheumatoid arthritis, unspecified; F41.9 Anxiety disorder, unspecified; F31.9 Bipolar disorder, unspecified; E66.9 Obesity, unspecified; Z68.42 Body mass index [BMI] 45.0-49.9, adult; Z79.899 Other long term (current) drug therapy
CPT/HCPCS: 36415; 80053; 83880; 84484; 85025; 93005; 93010; 99284; 99285-25

== ENCOUNTER 2022-02-12 11:36 | Emergency (ER) | payer OTHER ==
[2022-02-12 12:19] VITALS: BP 142/93; PULSE 112
[2022-02-12 12:59] LABS: CORONAVIRUS COVID-19 NAA POSITIVE (NEGATIVE)
== END 2022-02-12 13:22 | disposition home or self-care (01) ==
LOC: JP.ED 11:36
DX: U07.1 COVID-19 (principal); I10 Essential (primary) hypertension; F32.A Depression, unspecified; F41.9 Anxiety disorder, unspecified; M19.90 Unspecified osteoarthritis, unspecified site; E66.9 Obesity, unspecified; Z79.82 Long term (current) use of aspirin; Z79.899 Other long term (current) drug therapy
CPT/HCPCS: 0241U; 99281; 99283

== ENCOUNTER 2022-05-18 02:09 | Emergency (ER) | payer OTHER ==
[2022-05-18 02:29] VITALS: BP 148/100; PULSE 81
[2022-05-18 03:11] LABS: ESTIMATED GFR 70 mL/min (>60); TROPONIN I HIGH SENSITIVITY 4.2 pg/mL (<=60.3)
== END 2022-05-18 03:40 | disposition home or self-care (01) ==
LOC: JP.ED 02:09
DX: R07.89 Other chest pain (principal); F43.9 Reaction to severe stress, unspecified; I10 Essential (primary) hypertension; E66.9 Obesity, unspecified; Z79.82 Long term (current) use of aspirin; Z68.42 Body mass index [BMI] 45.0-49.9, adult
CPT/HCPCS: 36415; 80053; 84484; 85025; 85379; 86140; 93005; 93010; 99284; 99285

== ENCOUNTER 2022-06-13 06:45 | Emergency (ER) | payer OTHER ==
[2022-06-13 08:36] VITALS: BP 138/78; PULSE 77
== END 2022-06-13 08:22 | disposition home or self-care (01) ==
LOC: JP.ED 06:45
DX: R20.2 Paresthesia of skin (principal); F41.9 Anxiety disorder, unspecified; F43.9 Reaction to severe stress, unspecified; I10 Essential (primary) hypertension; E66.9 Obesity, unspecified; Z79.82 Long term (current) use of aspirin; Z86.16 Personal history of COVID-19; Z68.42 Body mass index [BMI] 45.0-49.9, adult
CPT/HCPCS: 99283

== ENCOUNTER 2022-06-24 05:51 | Emergency (ER) | payer OTHER ==
[2022-06-24 06:38] VITALS: BP 134/68; PULSE 89
== END 2022-06-24 07:22 | disposition home or self-care (01) ==
LOC: JP.ED 05:51
DX: S52.122A Displaced fracture of head of left radius, initial encounter for closed fracture (principal); R53.1 Weakness; I10 Essential (primary) hypertension; M06.9 Rheumatoid arthritis, unspecified; E66.9 Obesity, unspecified; Z68.43 Body mass index [BMI] 50.0-59.9, adult; Z79.82 Long term (current) use of aspirin; Z79.899 Other long term (current) drug therapy; W18.30XA Fall on same level, unspecified, initial encounter
CPT/HCPCS: 73080-26-LT; 73080-LT; 99284

== ENCOUNTER 2022-11-03 20:12 | Emergency (ER) | payer OTHER ==
[2022-11-03] MEDS ORDERED: Ondansetron 4 MG Tab.DIS PO ONE (22:09)
[2022-11-03 22:16] VITALS: BP 167/102; PULSE 96
== END 2022-11-03 22:25 | disposition home or self-care (01) ==
LOC: JP.ED 20:12
DX: K59.01 Slow transit constipation (principal); I10 Essential (primary) hypertension; E66.9 Obesity, unspecified; Z86.16 Personal history of COVID-19; Z79.82 Long term (current) use of aspirin; Z68.43 Body mass index [BMI] 50.0-59.9, adult
CPT/HCPCS: 74019; 99284; Q0162

== ENCOUNTER 2022-11-04 10:41 | Inpatient (IN) | payer OTHER ==
[2022-11-04] MEDS ORDERED: Sodium Chloride 0.9% 10 ML Syringe FLUSH PRN (11:15)
[2022-11-04] MEDS ORDERED: Prochlorperazine 10 MG/2 ML SDV IVPUSH ONE (11:15)
[2022-11-04] MEDS ORDERED: HYDROmorphone 0.5 MG/0.5 ML Syringe IVPUSH ONE ×2 (11:15→14:15)
[2022-11-04] MEDS ORDERED: Sodium Chloride 0.9% 500 ML IV ONE ×2 (11:18→12:38)
[2022-11-04 11:49] LABS: ESTIMATED GFR 91 mL/min (>60)
[2022-11-04] MEDS ORDERED: Iopamidol 612 MG/ML 100 ML Bottle IV PRN (11:52)
[2022-11-04] MEDS ORDERED: Sodium Chloride 0.9% 10 ML SDV FLUSH ONE (11:52)
[2022-11-04] MEDS ORDERED: Sodium Chloride 0.9% 100 ML IV SCH (12:00)
[2022-11-04] MEDS ORDERED: ceFAZolin 2 GM in Premix Bag 1 BAG IV ONE (14:41)
[2022-11-04] MEDS ORDERED: Sodium Chloride 0.9% 1,000 ML IV SCH (14:45)
[2022-11-04 14:56] LABS: CORONAVIRUS COVID-19 NAA NEGATIVE (NEGATIVE)
[2022-11-04] MEDS ORDERED: ceFAZolin 2 GM in Sodium Chloride 0.9% 50 ML IV ONE (15:15)
[2022-11-04] MEDS ORDERED: Neostigmine Methylsulfate 1 MG/ML 5 ML Syringe ONE (15:32)
[2022-11-04] MEDS ORDERED: Rocuronium 50 MG/5 ML Vial ONE ×2 (15:32→17:38)
[2022-11-04] MEDS ORDERED: Dexamethasone 4 MG/ML SDV ONE (15:32)
[2022-11-04] MEDS ORDERED: Succinylcholine 200 MG/10 ML MDV ONE (15:32)
[2022-11-04] MEDS ORDERED: Glycopyrrolate 0.2 MG/ML 5 ML MDV ONE (15:32)
[2022-11-04] MEDS ORDERED: Ondansetron 4 MG/2 ML SDV ONE (15:32)
[2022-11-04] MEDS ORDERED: Propofol 200 MG/20 ML SDV ONE (15:32)
[2022-11-04] MEDS ORDERED: fentaNYL 250 MCG/5 ML SDV ONE ×3 (15:34→17:38)
[2022-11-04] MEDS ORDERED: metroNIDAZOLE/Normal Saline 500 MG in Premix Bag 1 BAG IV ONE (15:45)
[2022-11-04] MEDS ORDERED: Docusate Sodium 100 MG Cap PO PRN (15:53)
[2022-11-04] MEDS ORDERED: Benzocaine/Cetylpyridinium/Menthol Lozenge MUCMEM PRN (15:53)
[2022-11-04] MEDS ORDERED: diphenhydrAMINE 50 MG/ML SDV IVPUSH PRN (15:53)
[2022-11-04] MEDS ORDERED: fentaNYL 100 MCG/2 ML SDV IVPUSH PRN (15:53)
[2022-11-04] MEDS: Lidocaine 1% with EPINEPHrine 1:100,000 50 ML MDV ONE ×2 (16:38→18:10)
[2022-11-04] MEDS: Bupivacaine 0.5% 50 ML MDV ONE ×2 (16:38→18:10)
[2022-11-04] MEDS ORDERED: Lactated Ringers 1,000 ML ONE ×2 (17:10→18:22)
[2022-11-04] MEDS ORDERED: hydrOXYzine HCl 50 MG/ML SDV IM ONE (17:45)
[2022-11-04] MEDS ORDERED: Meperidine PF 100 MG/ML Syringe IM ONE (17:46)
[2022-11-04] MEDS ORDERED: Indocyanine Green 25 MG SDV ONE (17:50)
[2022-11-04] MEDS: fentaNYL 100 MCG/2 ML SDV IVPUSH PRN ×2 (19:57→21:06)
[2022-11-04] MEDS: Sodium Chloride 0.9% 1,000 ML IV SCH (21:09)
[2022-11-04] MEDS: Promethazine 25 MG/ML SDV IM PRN (21:15)
[2022-11-04] MEDS: HYDROmorphone 0.5 MG/0.5 ML Syringe IVPUSH PRN ×2 (22:06→23:03)
[2022-11-04] MEDS: Piperacillin/Tazobactam 3.375 GM in Sodium Chloride 0.9% 50 ML IV SCH (22:32)
[2022-11-05] MEDS: HYDROmorphone 0.5 MG/0.5 ML Syringe IVPUSH PRN ×6 (00:24→07:09)
[2022-11-05] MEDS: Metoclopramide 10 MG/2 ML SDV IV PRN ×3 (00:39→18:35)
[2022-11-05] MEDS: Piperacillin/Tazobactam 3.375 GM in Sodium Chloride 0.9% 50 ML IV SCH (01:50)
[2022-11-05] MEDS: Sodium Chloride 0.9% 1,000 ML IV SCH ×2 (07:09→16:38)
[2022-11-05] MEDS: Acetaminophen/oxyCODONE 325-5 MG Tab PO PRN (09:00)
[2022-11-05] MEDS: Piperacillin/Tazobactam/Dext 3.375 GM in Premix Bag 1 BAG IV SCH ×3 (09:00→20:45)
[2022-11-05] MEDS ORDERED: Pantoprazole 40 MG Tab.CR PO SCH (09:00)
[2022-11-05] MEDS: Pantoprazole 40 MG Tab.CR PO SCH (09:02)
[2022-11-05] MEDS: Enoxaparin 40 MG/0.4 ML Syringe SUBCUT SCH (09:02)
[2022-11-05] MEDS ORDERED: Divalproex Sodium Delayed-Release 250 MG Tab.CR PO SCH (09:30)
[2022-11-05] MEDS ORDERED: Aspirin 325 MG Tab.EC PO SCH (09:30)
[2022-11-05] MEDS: hydrOXYzine HCl 50 MG/ML SDV IM PRN ×2 (10:12→18:38)
[2022-11-05] MEDS: Morphine 4 MG/ML Syringe IVPUSH PRN ×3 (10:13→20:42)
[2022-11-05] MEDS: busPIRone 5 MG Tab PO SCH ×2 (10:56→20:48)
[2022-11-05] MEDS: Divalproex Sodium Delayed-Release 250 MG Tab.CR PO SCH ×2 (10:58→20:48)
[2022-11-05] MEDS: Gabapentin 400 MG Cap PO SCH ×2 (10:58→20:47)
[2022-11-05] MEDS: LORazepam 0.5 MG Tab PO SCH (10:59)
[2022-11-05] MEDS: Cyclobenzaprine 10 MG Tab PO PRN (11:00)
[2022-11-05] MEDS: Aspirin 325 MG Tab.EC PO SCH (11:00)
[2022-11-05] MEDS: Promethazine 25 MG/ML SDV IM PRN (12:15)
[2022-11-05] MEDS: Morphine 2 MG/ML SYRINGE IVPUSH PRN ×2 (14:03→15:18)
[2022-11-05] MEDS: Ondansetron 4 MG/2 ML SDV IVPUSH PRN ×2 (16:40→20:45)
[2022-11-05] MEDS ORDERED: Amitriptyline 25 MG Tab PO SCH (17:00)
[2022-11-05] MEDS ORDERED: DIVALPROEX SODIUM 500 MG PO SCH (17:00)
[2022-11-05] MEDS: Amitriptyline 25 MG Tab PO SCH (20:48)
[2022-11-05] MEDS ORDERED: QUETIAPINE 150 MG PO SCH (21:00)
[2022-11-06] MEDS: Acetaminophen/oxyCODONE 325-5 MG Tab PO PRN ×4 (00:14→17:56)
[2022-11-06] MEDS: Ondansetron 4 MG/2 ML SDV IVPUSH PRN (01:05)
[2022-11-06] MEDS: Sodium Chloride 0.9% 1,000 ML IV SCH ×2 (01:10→19:37)
[2022-11-06] MEDS: Morphine 4 MG/ML Syringe IVPUSH PRN ×4 (01:24→15:19)
[2022-11-06] MEDS: Piperacillin/Tazobactam/Dext 3.375 GM in Premix Bag 1 BAG IV SCH ×4 (01:33→20:45)
[2022-11-06] MEDS: Acetaminophen 325 MG Tab PO PRN (07:42)
[2022-11-06] MEDS: hydrOXYzine HCl 50 MG/ML SDV IM PRN (07:43)
[2022-11-06] MEDS: Pantoprazole 40 MG Tab.CR PO SCH (07:45)
[2022-11-06] MEDS ORDERED: Magnesium Sulfate/Water 2 GM in Premix Bag 1 BAG IV ONE (09:00)
[2022-11-06] MEDS: Aspirin 325 MG Tab.EC PO SCH (09:44)
[2022-11-06] MEDS: busPIRone 5 MG Tab PO SCH ×2 (09:44→20:46)
[2022-11-06] MEDS: Divalproex Sodium Delayed-Release 250 MG Tab.CR PO SCH ×2 (09:45→20:46)
[2022-11-06] MEDS: Gabapentin 400 MG Cap PO SCH ×2 (09:45→20:45)
[2022-11-06] MEDS: Enoxaparin 40 MG/0.4 ML Syringe SUBCUT SCH (09:45)
[2022-11-06] MEDS: LORazepam 0.5 MG Tab PO SCH (09:49)
[2022-11-06] MEDS: Morphine 2 MG/ML SYRINGE IVPUSH PRN (20:39)
[2022-11-06] MEDS: Cyclobenzaprine 10 MG Tab PO PRN (20:45)
[2022-11-06] MEDS: Amitriptyline 25 MG Tab PO SCH (20:46)
[2022-11-07] MEDS: Morphine 2 MG/ML SYRINGE IVPUSH PRN ×3 (00:22→08:24)
[2022-11-07] MEDS: Acetaminophen/oxyCODONE 325-5 MG Tab PO PRN (00:23)
[2022-11-07] MEDS: Piperacillin/Tazobactam/Dext 3.375 GM in Premix Bag 1 BAG IV SCH ×4 (02:53→19:22)
[2022-11-07] MEDS: Sodium Chloride 0.9% 1,000 ML IV SCH ×3 (03:16→20:54)
[2022-11-07] MEDS ORDERED: Potassium Chloride Riders 40 MEQ in Premix Bag 1 BAG IV ONE (08:53)
[2022-11-07] MEDS: Pantoprazole 40 MG Tab.CR PO SCH (10:14)
[2022-11-07] MEDS: busPIRone 5 MG Tab PO SCH ×2 (10:14→20:49)
[2022-11-07] MEDS: Divalproex Sodium Delayed-Release 250 MG Tab.CR PO SCH ×2 (10:15→20:49)
[2022-11-07] MEDS: Aspirin 325 MG Tab.EC PO SCH (10:16)
[2022-11-07] MEDS: Gabapentin 400 MG Cap PO SCH ×2 (10:16→20:49)
[2022-11-07] MEDS: Enoxaparin 40 MG/0.4 ML Syringe SUBCUT SCH (10:16)
[2022-11-07] MEDS: LORazepam 0.5 MG Tab PO SCH (10:21)
[2022-11-07] MEDS: Morphine 4 MG/ML Syringe IVPUSH PRN ×4 (10:28→22:16)
[2022-11-07] MEDS: Potassium Chloride 10 MEQ in Premix Bag 1 BAG IV SCH ×4 (10:34→15:27)
[2022-11-07] MEDS: Amitriptyline 25 MG Tab PO SCH (20:49)
[2022-11-07] MEDS: Cyclobenzaprine 10 MG Tab PO PRN (20:50)
[2022-11-07] MEDS: Ondansetron 4 MG/2 ML SDV IVPUSH PRN (22:16)
[2022-11-08] MEDS: Piperacillin/Tazobactam/Dext 3.375 GM in Premix Bag 1 BAG IV SCH ×4 (02:12→20:08)
[2022-11-08] MEDS: Morphine 4 MG/ML Syringe IVPUSH PRN ×4 (02:12→17:37)
[2022-11-08] MEDS: Sodium Chloride 0.9% 1,000 ML IV SCH ×2 (05:29→13:28)
[2022-11-08] MEDS: LORazepam 0.5 MG Tab PO SCH (08:14)
[2022-11-08] MEDS: Pantoprazole 40 MG Tab.CR PO SCH (08:16)
[2022-11-08] MEDS: Divalproex Sodium Delayed-Release 250 MG Tab.CR PO SCH ×2 (08:17→20:08)
[2022-11-08] MEDS: busPIRone 5 MG Tab PO SCH ×2 (08:17→20:08)
[2022-11-08] MEDS: Enoxaparin 40 MG/0.4 ML Syringe SUBCUT SCH (08:18)
[2022-11-08] MEDS: Aspirin 325 MG Tab.EC PO SCH (08:18)
[2022-11-08] MEDS: Gabapentin 400 MG Cap PO SCH ×2 (08:20→20:09)
[2022-11-08] MEDS: Acetaminophen/oxyCODONE 325-5 MG Tab PO PRN ×2 (08:29→20:07)
[2022-11-08] MEDS ORDERED: Sodium Chloride 0.9% 50 ML IV ONE (09:23)
[2022-11-08] MEDS ORDERED: Iopamidol 612 MG/ML 100 ML Bottle IV ONE (09:23)
[2022-11-08] MEDS ORDERED: Sodium Chloride 0.9% 10 ML Syringe FLUSH ONE (09:23)
[2022-11-08] MEDS ORDERED: Iopamidol 612 MG/ML 30 ML SDV PO ONE ×2 (09:24→11:44)
[2022-11-08] MEDS: hydrOXYzine HCl 50 MG/ML SDV IM PRN (09:51)
[2022-11-08] MEDS ORDERED: Ketorolac 15 MG/ML SDV IVPUSH PRN (10:06)
[2022-11-08] MEDS: Cyclobenzaprine 10 MG Tab PO PRN (20:08)
[2022-11-08] MEDS: Amitriptyline 25 MG Tab PO SCH (20:09)
[2022-11-09] MEDS: Sodium Chloride 0.9% 1,000 ML IV SCH ×3 (00:30→20:28)
[2022-11-09] MEDS: Morphine 2 MG/ML SYRINGE IVPUSH PRN (00:36)
[2022-11-09] MEDS: Piperacillin/Tazobactam/Dext 3.375 GM in Premix Bag 1 BAG IV SCH ×4 (01:39→19:55)
[2022-11-09] MEDS: Acetaminophen/oxyCODONE 325-5 MG Tab PO PRN ×4 (05:12→17:54)
[2022-11-09] MEDS: Pantoprazole 40 MG Tab.CR PO SCH (08:21)
[2022-11-09] MEDS: Aspirin 325 MG Tab.EC PO SCH (08:22)
[2022-11-09] MEDS: Divalproex Sodium Delayed-Release 250 MG Tab.CR PO SCH ×2 (08:22→22:03)
[2022-11-09] MEDS: busPIRone 5 MG Tab PO SCH ×2 (08:23→22:04)
[2022-11-09] MEDS: Gabapentin 400 MG Cap PO SCH ×2 (08:24→22:03)
[2022-11-09] MEDS: LORazepam 0.5 MG Tab PO SCH (08:24)
[2022-11-09] MEDS: Potassium Chloride 10 MEQ in Premix Bag 1 BAG IV SCH ×6 (09:03→19:14)
[2022-11-09] MEDS: Enoxaparin 40 MG/0.4 ML Syringe SUBCUT SCH (11:12)
[2022-11-09] MEDS: Acetaminophen 325 MG Tab PO PRN (19:54)
[2022-11-09] MEDS: Cyclobenzaprine 10 MG Tab PO PRN (22:02)
[2022-11-09] MEDS: Amitriptyline 25 MG Tab PO SCH (22:04)
[2022-11-10] MEDS: Acetaminophen/oxyCODONE 325-5 MG Tab PO PRN ×5 (00:38→21:18)
[2022-11-10] MEDS: Piperacillin/Tazobactam/Dext 3.375 GM in Premix Bag 1 BAG IV SCH ×2 (02:03→08:40)
[2022-11-10] MEDS: Ondansetron 4 MG/2 ML SDV IVPUSH PRN ×3 (02:07→17:48)
[2022-11-10] MEDS: Pantoprazole 40 MG Tab.CR PO SCH (08:00)
[2022-11-10] MEDS: LORazepam 0.5 MG Tab PO SCH (08:33)
[2022-11-10] MEDS: busPIRone 5 MG Tab PO SCH ×2 (08:37→21:13)
[2022-11-10] MEDS: Divalproex Sodium Delayed-Release 250 MG Tab.CR PO SCH ×2 (08:38→21:14)
[2022-11-10] MEDS: Aspirin 325 MG Tab.EC PO SCH (08:39)
[2022-11-10] MEDS: Enoxaparin 40 MG/0.4 ML Syringe SUBCUT SCH (08:40)
[2022-11-10] MEDS: Gabapentin 400 MG Cap PO SCH ×2 (09:51→21:13)
[2022-11-10] MEDS: Metoclopramide 10 MG/2 ML SDV IV PRN (10:11)
[2022-11-10] MEDS: Scopolamine 1.5 MG Transdermal Patch TOP SCH (12:21)
[2022-11-10] MEDS: Cyclobenzaprine 10 MG Tab PO PRN (19:40)
[2022-11-10] MEDS: Amitriptyline 25 MG Tab PO SCH (21:13)
[2022-11-10] MEDS: Ondansetron 4 MG Tab.DIS PO PRN (23:51)
[2022-11-11] MEDS: Acetaminophen/oxyCODONE 325-5 MG Tab PO PRN ×4 (07:18→21:16)
[2022-11-11] MEDS: Pantoprazole 40 MG Tab.CR PO SCH (07:22)
[2022-11-11] MEDS: Ondansetron 4 MG Tab.DIS PO PRN ×4 (08:19→21:16)
[2022-11-11] MEDS: LORazepam 0.5 MG Tab PO SCH (09:11)
[2022-11-11] MEDS: busPIRone 5 MG Tab PO SCH ×2 (09:12→20:39)
[2022-11-11] MEDS: Gabapentin 400 MG Cap PO SCH ×2 (09:14→20:39)
[2022-11-11] MEDS: Aspirin 325 MG Tab.EC PO SCH (09:15)
[2022-11-11] MEDS: Divalproex Sodium Delayed-Release 250 MG Tab.CR PO SCH ×2 (09:16→20:39)
[2022-11-11] MEDS: Enoxaparin 40 MG/0.4 ML Syringe SUBCUT SCH (09:17)
[2022-11-11] MEDS: Bisacodyl 5 MG Tab PO PRN (10:23)
[2022-11-11] MEDS: Polyethylene Glycol 3350 Powder 17 GM Packet PO PRN (10:23)
[2022-11-11] MEDS: SCOPOLAMINE PATCH CHECK TOP SCH (13:21)
[2022-11-11] MEDS: Amitriptyline 25 MG Tab PO SCH (20:40)
[2022-11-12] MEDS: Acetaminophen/oxyCODONE 325-5 MG Tab PO PRN ×6 (01:28→23:29)
[2022-11-12] MEDS: Ondansetron 4 MG Tab.DIS PO PRN ×2 (07:39→12:04)
[2022-11-12] MEDS: hydrOXYzine HCl 50 MG/ML SDV IM PRN (07:40)
[2022-11-12] MEDS: Pantoprazole 40 MG Tab.CR PO SCH (07:43)
[2022-11-12] MEDS: busPIRone 5 MG Tab PO SCH ×2 (08:29→20:21)
[2022-11-12] MEDS: Aspirin 325 MG Tab.EC PO SCH (08:29)
[2022-11-12] MEDS: Divalproex Sodium Delayed-Release 250 MG Tab.CR PO SCH ×2 (08:29→20:21)
[2022-11-12] MEDS: Enoxaparin 40 MG/0.4 ML Syringe SUBCUT SCH (08:29)
[2022-11-12] MEDS: Gabapentin 400 MG Cap PO SCH ×2 (08:29→20:21)
[2022-11-12] MEDS: LORazepam 0.5 MG Tab PO SCH (08:29)
[2022-11-12] MEDS: SCOPOLAMINE PATCH CHECK TOP SCH (08:40)
[2022-11-12] MEDS: Lactulose Soln 10 GM/15 ML 15 ML UD Cup PO SCH (10:42)
[2022-11-12] MEDS ORDERED: Lactulose Soln 10 GM/15 ML 15 ML UD Cup PO ONE (14:30)
[2022-11-12] MEDS: Amitriptyline 25 MG Tab PO SCH (20:21)
[2022-11-13] MEDS: Bisacodyl 5 MG Tab PO PRN (04:03)
[2022-11-13] MEDS: Polyethylene Glycol 3350 Powder 17 GM Packet PO PRN (04:03)
[2022-11-13] MEDS: Acetaminophen/oxyCODONE 325-5 MG Tab PO PRN (04:03)
[2022-11-13] MEDS: Pantoprazole 40 MG Tab.CR PO SCH (07:50)
[2022-11-13] MEDS: Ondansetron 4 MG Tab.DIS PO PRN (07:55)
[2022-11-13] MEDS: Gabapentin 400 MG Cap PO SCH (08:52)
[2022-11-13] MEDS: Aspirin 325 MG Tab.EC PO SCH (08:52)
[2022-11-13] MEDS: Enoxaparin 40 MG/0.4 ML Syringe SUBCUT SCH (08:52)
[2022-11-13] MEDS: Lactulose Soln 10 GM/15 ML 15 ML UD Cup PO SCH (08:52)
[2022-11-13] MEDS: busPIRone 5 MG Tab PO SCH (08:52)
[2022-11-13] MEDS: Divalproex Sodium Delayed-Release 250 MG Tab.CR PO SCH (08:52)
[2022-11-13] MEDS: SCOPOLAMINE PATCH CHECK TOP SCH (08:58)
[2022-11-13] MEDS: LORazepam 0.5 MG Tab PO SCH (08:58)
[2022-11-13] MEDS ORDERED: Calcium Carbonate 500 MG Tab.Chew PO PRN (09:37)
[2022-11-13] MEDS ORDERED: Polyethylene Glycol 3350 Powder 119 GM Bottle PO ONE (10:00)
[2022-11-13] MEDS ORDERED: Bisacodyl 10 MG Supp RECTAL ONE (10:00)
[2022-11-13] MEDS: Scopolamine 1.5 MG Transdermal Patch TOP SCH (10:14)
[2022-11-13 10:54] VITALS: BP 143/78; PULSE 96
== END 2022-11-13 13:00 | disposition home or self-care (01) | DRG 330 ==
LOC: JP.ED 10:41 → JP.SDS 15:13 → JP.MS 15:53 → OBSVTOIN 18:43
PROVIDERS: ADMIT Surgery; ATTEND Surgery
PROC: 0DNW0ZZ Release Peritoneum, Open Approach (ICD-10-PCS; principal; 2022-11-04)
PROC: 0DT80ZZ Resection of Small Intestine, Open Approach (ICD-10-PCS; principal; 2022-11-04)
DX: K56.609 Unspecified intestinal obstruction, unspecified as to partial versus complete obstruction (principal); J98.11 Atelectasis; Z68.43 Body mass index [BMI] 50.0-59.9, adult; I10 Essential (primary) hypertension; K59.03 Drug induced constipation; T50.995A Adverse effect of other drugs, medicaments and biological substances, initial encounter; E66.9 Obesity, unspecified; F41.9 Anxiety disorder, unspecified; K56.7 Ileus, unspecified; F31.9 Bipolar disorder, unspecified; J30.9 Allergic rhinitis, unspecified; M19.90 Unspecified osteoarthritis, unspecified site; Z98.890 Other specified postprocedural states; Z90.710 Acquired absence of both cervix and uterus; Z85.41 Personal history of malignant neoplasm of cervix uteri; Z79.82 Long term (current) use of aspirin; Z79.899 Other long term (current) drug therapy; Z90.49 Acquired absence of other specified parts of digestive tract
CPT/HCPCS: 0241U; 36415; 74019; 74019-26; 74177; 74177-26; 76705; 76705-26; 80048; 80053; 81001; 83690; 83735; 84100; 85025; 86140; 88307; 93005; 93010; 96361; 96374; 96375; 96376; 97110-GP; 97116-GP; 97162-GP; 97530-GP; 97535-GP; 99285; 99285-25; A9270-GY; J0131; J0171; J0330; J0690; J0780; J1100; J1170; J1650; J1885; J2175; J2270; J2405; J2543; J2550; J2704; J2710; J2765; J2795; J3010; J3410; J3475; J3480; J3490; J7030; J7040; J7120; Q0162; Q9967

== ENCOUNTER 2022-11-22 13:54 | Emergency (ER) | payer OTHER ==
[2022-11-22 14:39] VITALS: BP 153/79; PULSE 105
[2022-11-22] MEDS ORDERED: cefTRIAXone 1 GM in Sodium Chloride 0.9% 50 ML IV ONE (15:54)
== END 2022-11-22 16:41 | disposition home or self-care (01) ==
LOC: JP.ED 13:54
DX: L03.311 Cellulitis of abdominal wall (principal); I10 Essential (primary) hypertension; M19.90 Unspecified osteoarthritis, unspecified site; E66.9 Obesity, unspecified; Z68.43 Body mass index [BMI] 50.0-59.9, adult; Z79.82 Long term (current) use of aspirin; Z79.899 Other long term (current) drug therapy
CPT/HCPCS: 36415; 76705; 80048; 85025; 86140; 96365; 99284; J0696; J3490

== ENCOUNTER 2023-01-19 03:08 | Emergency (ER) | payer OTHER ==
[2023-01-19] MEDS ORDERED: Sodium Chloride 0.9% 10 ML Syringe FLUSH PRN (03:22)
[2023-01-19 03:24] LABS: BASOPHILS ABSOLUTE AUTO 0.03 K/uL (0.00-0.10); BASOPHILS PERCENT AUTO 0.3 % (0.1-1.3); EOSINOPHILS ABSOLUTE AUTO 0.02 K/uL (0.00-0.40); EOSINOPHILS PERCENT AUTO 0.2 % (0.0-5.4); HEMATOCRIT 37.1 % (34.3-46.0); HEMOGLOBIN 11.4 g/dL (11.2-15.5); IMMATURE GRAN ABSOLUTE AUTO 0.04 K/uL (0.00-0.23); IMMATURE GRAN PERCENT AUTO 0.4 % (0.0-0.7); LYMPHOCYTES ABSOLUTE AUTO 0.95 K/uL (0.8-3.3); LYMPHOCYTES PERCENT AUTO 9.9 % (11.4-47.7); MEAN CORPUSCULAR HEMOGLOBIN 27.9 pg (31.6-35.5); MEAN CORPUSCULAR HGB CONC 30.7 g/dL (31.6-35.5); MEAN CORPUSCULAR VOLUME 90.7 fL (81.4-99.0); MONOCYTES ABSOLUTE AUTO 0.72 K/uL (0.20-0.90); MONOCYTES PERCENT AUTO 7.5 % (3.3-12.6); NEUTROPHILS ABSOLUTE AUTO 7.86 K/uL (1.0-7.6); NEUTROPHILS PERCENT AUTO 81.7 % (40.0-78.1); PLATELET COUNT,PLT 327 K/uL (130-375); RED BLOOD CELL COUNT 4.09 M/uL (3.77-5.24); WHITE BLOOD CELL COUNT,WBC 9.6 K/uL (3.2-11.0)
[2023-01-19] MEDS ORDERED: Lactated Ringers 1,000 ML IV ONE (03:24)
[2023-01-19 03:48] LABS: A/G RATIO 0.8 (1.2-2.2); ALANINE AMINOTRANSFERASE,ALT 14 U/L (12-78); ALBUMIN 3.1 g/dL (3.4-5.0); ALKALINE PHOSPHATASE 77 U/L (46-116); ASPARTATE AMNIOTRANSFERASE,AST 12 U/L (15-37); BILIRUBIN TOTAL 0.3 mg/dL (0.2-1.0); BLOOD UREA NITROGEN,BUN 34 mg/dL (7-18); C-REACTIVE PROTEIN 5.45 mg/dL (0.0-0.3); CALCIUM 8.5 mg/dL (8.5-10.1); CARBON DIOXIDE,CO2 26 mmol/L (21-32); CHLORIDE,CL 98 mmol/L (100-108); ESTIMATED GFR 11 mL/min (>60); GLUCOSE RANDOM 117 mg/dL (74-106); PROTEIN TOTAL,TP 6.9 g/dL (6.4-8.2); SODIUM,NA 134 mmol/L (140-148)
[2023-01-19 03:50] LABS: ANION GAP 16.4 mmol/L (5.0-14.0); CREATININE 4.7 mg/dL (0.6-1.0); LACTIC ACID 1.9 mmol/L (0.4-2.0); POTASSIUM,K 6.4 mmol/L (3.6-5.2)
[2023-01-19] MEDS ORDERED: cefTRIAXone 2 GM in Sodium Chloride 0.9% 100 ML IV SCH (04:00)
[2023-01-19] MEDS ORDERED: Sodium Chloride 0.9% 1,000 ML IV SCH ×4 (04:00→07:30)
[2023-01-19] MEDS ORDERED: Norepinephrine Bit/D5W Premix 4 MG in Premix Bag 1 BAG IV SCH (04:30)
[2023-01-19 04:43] LABS: BASE EXCESS VENOUS -3.2 mm/L; BICARBONATE,VENOUS 23.7 mmol/L; CARBOXYHEMOGLOBIN 2.1 % (0.0-1.6); METHEMOGLOBIN 0.7 %; O2 SATURATION VENOUS 71.3; OXYHEMOGLOBIN 69.3 %; PCO2 VENOUS 53.9 mm/Hg; PH,VENOUS 7.266 (7.350-7.450); PO2 VENOUS 39.7 mm/Hg; TOTAL HEMOGLOBIN 11.8 g/dL (12.0-16.0)
[2023-01-19 04:45] LABS: AMPHETAMINES SCREEN, URINE NEGATIVE (NEGATIVE); BENZODIAZEPINES SCREEN,URINE PRESUMPTIVE POSITIVE (NEGATIVE); METHAMPHETAMINES SCREEN, URINE NEGATIVE (NEGATIVE); OXYCODONE SCREEN,URINE PRESUMPTIVE POSITIVE (NEGATIVE)
[2023-01-19 04:46] LABS: APPEARANCE,URINE CLOUDY (CLEAR); BARBITURATE SCREEN,URINE NEGATIVE (NEGATIVE); BILIRUBIN,URINE SMALL (NEGATIVE); COLOR,URINE YELLOW (YELLOW); GLUCOSE,URINE NEGATIVE (NEGATIVE); KETONES,URINE NEGATIVE (NEGATIVE); LEUKOCYTE ESTERASE,URINE NEGATIVE (NEGATIVE); METHADONE SCREEN, URINE NEGATIVE (NEGATIVE); NITRITE,URINE NEGATIVE (NEGATIVE); OCCULT BLOOD,URINE NEGATIVE (NEGATIVE); PROPOXYPHENE SCREEN,URINE NEGATIVE (NEGATIVE); PROTEIN,URINE 100 mg/dL (NEGATIVE); THC SCREEN,URINE 50 NG/ML NEGATIVE (NEGATIVE); UROBILINOGEN,URINE 0.2 EU/dL (0.2-1.0)
[2023-01-19 04:50] LABS: AMORPHOUS SEDIMENT,URINE MANY; BACTERIA,URINE FEW; EPITHELIAL CELLS,URINE FEW; MUCUS,URINE NOT SEEN; RBC,URINE 0-5 (0-5)
[2023-01-19] MEDS ORDERED: Sodium Chloride 0.9% 3,000 ML IV SCH (05:15)
[2023-01-19 06:13] LABS: CALCIUM 8.5 mg/dL (8.5-10.1); EST CRCL DRUG DOSING (CG) 15.71 mL/min
[2023-01-19 06:17] LABS: ANION GAP 18.1 mmol/L (5.0-14.0); POTASSIUM,K 6.1 mmol/L (3.6-5.2)
[2023-01-19 06:18] LABS: CREATININE 4.1 mg/dL (0.6-1.0)
[2023-01-19] MEDS ORDERED: Aspirin 81 MG Tab.Chew PO ONE (07:16)
[2023-01-19] MEDS ORDERED: Heparin Sodium 5,000 Units/ML Vial IVPUSH ONE (07:16)
[2023-01-19] MEDS ORDERED: Heparin Sodium/D5W 25,000 UNITS/500 ML BAG IV SCH (07:30)
[2023-01-19 07:31] LABS: PROTHROMBIN TIME 9.9 sec (9.2-10.6); PTT,PARTIAL THROMBOPLSTIN TIME 27.2 sec (21.8-27.3)
[2023-01-19 09:33] VITALS: BP 104/47; PULSE 93
== END 2023-01-19 09:33 ==
LOC: JP.ED 03:08
DX: I21.4 Non-ST elevation (NSTEMI) myocardial infarction (principal); N17.9 Acute kidney failure, unspecified; I10 Essential (primary) hypertension; E66.9 Obesity, unspecified; Z68.43 Body mass index [BMI] 50.0-59.9, adult; Z79.899 Other long term (current) drug therapy; Z86.16 Personal history of COVID-19
CPT/HCPCS: 36415; 71045; 80048; 80053; 80143; 80179; 80305; 80307; 81001; 82140; 82803; 83605; 83735; 84145; 84484; 85025; 85610; 85730; 86140; 87040; 93005; 96365; 96366; 96367; 96368; 96375; 99285; A9270; J0696; J1644; J3490; J7030; J7120

== ENCOUNTER 2023-02-17 08:57 | Emergency (ER) | payer OTHER ==
[2023-02-17] MEDS ORDERED: HYDROmorphone 1 MG/ML Syringe IM ONE (09:40)
[2023-02-17] MEDS ORDERED: HYDROmorphone 1 MG/ML Syringe IVPUSH ONE (09:53)
[2023-02-17 10:31] VITALS: BP 137/80; PULSE 92
== END 2023-02-17 11:02 | disposition home or self-care (01) ==
LOC: JP.ED 08:57
DX: S40.011A Contusion of right shoulder, initial encounter (principal); S80.02XA Contusion of left knee, initial encounter; S50.01XA Contusion of right elbow, initial encounter; I10 Essential (primary) hypertension; E66.9 Obesity, unspecified; Z68.42 Body mass index [BMI] 45.0-49.9, adult; Z86.16 Personal history of COVID-19; Z79.899 Other long term (current) drug therapy; W10.9XXA Fall (on) (from) unspecified stairs and steps, initial encounter
CPT/HCPCS: 73030; 73080; 73562; 96374; 99283; J1170

== ENCOUNTER 2023-03-08 10:09 | Observation (INO) | payer OTHER ==
[2023-03-08] MEDS ORDERED: Sodium Chloride 0.9% 10 ML Syringe FLUSH PRN ×2 (10:53→16:03)
[2023-03-08] MEDS ORDERED: Sodium Chloride 0.9% 1,000 ML IV SCH ×3 (11:00→16:03)
[2023-03-08 11:07] LABS: BASOPHILS ABSOLUTE AUTO 0.03 K/uL (0.00-0.10); BASOPHILS PERCENT AUTO 0.2 % (0.1-1.3); EOSINOPHILS ABSOLUTE AUTO 0.03 K/uL (0.00-0.40); EOSINOPHILS PERCENT AUTO 0.2 % (0.0-5.4); HEMATOCRIT 33.2 % (34.3-46.0); HEMOGLOBIN 10.5 g/dL (11.2-15.5); IMMATURE GRAN ABSOLUTE AUTO 0.08 K/uL (0.00-0.23); IMMATURE GRAN PERCENT AUTO 0.6 % (0.0-0.7); LYMPHOCYTES ABSOLUTE AUTO 0.93 K/uL (0.8-3.3); LYMPHOCYTES PERCENT AUTO 7.4 % (11.4-47.7); MEAN CORPUSCULAR HEMOGLOBIN 27.9 pg (31.6-35.5); MEAN CORPUSCULAR HGB CONC 31.6 g/dL (31.6-35.5); MEAN CORPUSCULAR VOLUME 88.1 fL (81.4-99.0); MONOCYTES ABSOLUTE AUTO 1.23 K/uL (0.20-0.90); MONOCYTES PERCENT AUTO 9.8 % (3.3-12.6); NEUTROPHILS ABSOLUTE AUTO 10.24 K/uL (1.0-7.6); NEUTROPHILS PERCENT AUTO 81.8 % (40.0-78.1); PLATELET COUNT,PLT 293 K/uL (130-375); RED BLOOD CELL COUNT 3.77 M/uL (3.77-5.24); WHITE BLOOD CELL COUNT,WBC 12.5 K/uL (3.2-11.0)
[2023-03-08 11:29] LABS: A/G RATIO 0.7 (1.2-2.2); ALANINE AMINOTRANSFERASE,ALT 21 U/L (12-78); ALBUMIN 2.8 g/dL (3.4-5.0); ALKALINE PHOSPHATASE 79 U/L (46-116); ASPARTATE AMNIOTRANSFERASE,AST 35 U/L (15-37); BILIRUBIN TOTAL 0.2 mg/dL (0.2-1.0); BLOOD UREA NITROGEN,BUN 55 mg/dL (7-18); CALCIUM 8.7 mg/dL (8.5-10.1); CARBON DIOXIDE,CO2 23 mmol/L (21-32); CHLORIDE,CL 98 mmol/L (100-108); EST CRCL DRUG DOSING (CG) 19.28 mL/min; ESTIMATED GFR 15 mL/min (>60); GLUCOSE RANDOM 122 mg/dL (74-106); POTASSIUM,K 4.4 mmol/L (3.6-5.2); PROTEIN TOTAL,TP 6.7 g/dL (6.4-8.2); SODIUM,NA 132 mmol/L (140-148)
[2023-03-08 11:32] LABS: ANION GAP 15.4 mmol/L (5.0-14.0); CREATININE 3.6 mg/dL (0.6-1.0)
[2023-03-08 14:01] LABS: APPEARANCE,URINE SLIGHTLY CLOUDY (CLEAR); BILIRUBIN,URINE NEGATIVE (NEGATIVE); COLOR,URINE YELLOW (YELLOW); GLUCOSE,URINE NEGATIVE (NEGATIVE); KETONES,URINE NEGATIVE (NEGATIVE); LEUKOCYTE ESTERASE,URINE NEGATIVE (NEGATIVE); NITRITE,URINE NEGATIVE (NEGATIVE); OCCULT BLOOD,URINE MODERATE (NEGATIVE); PH,URINE 5.5 (5.0-8.0); PROTEIN,URINE 100 mg/dL (NEGATIVE); UROBILINOGEN,URINE 0.2 EU/dL (0.2-1.0)
[2023-03-08 14:08] LABS: AMPHETAMINES SCREEN, URINE NEGATIVE (NEGATIVE); BARBITURATE SCREEN,URINE NEGATIVE (NEGATIVE); BENZODIAZEPINES SCREEN,URINE NEGATIVE (NEGATIVE); METHADONE SCREEN, URINE NEGATIVE (NEGATIVE); METHAMPHETAMINES SCREEN, URINE NEGATIVE (NEGATIVE); OXYCODONE SCREEN,URINE PRESUMPTIVE POSITIVE (NEGATIVE); PROPOXYPHENE SCREEN,URINE NEGATIVE (NEGATIVE); THC SCREEN,URINE 50 NG/ML NEGATIVE (NEGATIVE)
[2023-03-08 14:11] LABS: EPITHELIAL CELLS,URINE FEW; RBC,URINE 0-5 (0-5); WBC,URINE 0-5 (0-5)
[2023-03-08 14:12] LABS: AMORPHOUS SEDIMENT,URINE FEW; BACTERIA,URINE MODERATE; MUCUS,URINE NOT SEEN
[2023-03-08] MEDS ORDERED: Ketorolac 30 MG/ML SDV IVPUSH ONE (14:48)
[2023-03-08] MEDS ORDERED: oxyCODONE 5 MG Tab PO PRN (16:03)
[2023-03-08] MEDS ORDERED: Ondansetron 4 MG/2 ML SDV IV PRN (16:03)
[2023-03-08] MEDS ORDERED: Albuterol 0.083% 2.5 MG/3 ML Neb Soln NEB PRN (16:03)
[2023-03-08] MEDS ORDERED: Enoxaparin 30 MG/0.3 ML Syringe SUBCUT SCH (18:00)
[2023-03-08] MEDS: Acetaminophen 325 MG Tab PO PRN (18:39)
[2023-03-08] MEDS ORDERED: SERTRALINE HCL 100 MG PO SCH (21:00)
[2023-03-08] MEDS: Doxepin 10 MG Cap PO SCH (21:48)
[2023-03-08] MEDS: busPIRone 10 MG Tab PO SCH (21:48)
[2023-03-08] MEDS: Gabapentin 400 MG Cap PO SCH (21:48)
[2023-03-08] MEDS: LORazepam 0.5 MG Tab PO SCH (21:49)
[2023-03-08] MEDS: Divalproex Sodium Delayed-Release 250 MG Tab.CR PO SCH (21:49)
[2023-03-09] MEDS: Acetaminophen 325 MG Tab PO PRN (05:43)
[2023-03-09 05:57] LABS: BASOPHILS PERCENT AUTO 0.2 % (0.1-1.3); EOSINOPHILS ABSOLUTE AUTO 0.19 K/uL (0.00-0.40); EOSINOPHILS PERCENT AUTO 2.3 % (0.0-5.4); HEMATOCRIT 33.7 % (34.3-46.0); HEMOGLOBIN 10.5 g/dL (11.2-15.5); IMMATURE GRAN ABSOLUTE AUTO 0.06 K/uL (0.00-0.23); IMMATURE GRAN PERCENT AUTO 0.7 % (0.0-0.7); LYMPHOCYTES ABSOLUTE AUTO 0.93 K/uL (0.8-3.3); LYMPHOCYTES PERCENT AUTO 11.1 % (11.4-47.7); MEAN CORPUSCULAR HEMOGLOBIN 27.9 pg (31.6-35.5); MEAN CORPUSCULAR HGB CONC 31.2 g/dL (31.6-35.5); MEAN CORPUSCULAR VOLUME 89.6 fL (81.4-99.0); MONOCYTES ABSOLUTE AUTO 0.87 K/uL (0.20-0.90); MONOCYTES PERCENT AUTO 10.4 % (3.3-12.6); NEUTROPHILS ABSOLUTE AUTO 6.31 K/uL (1.0-7.6); NEUTROPHILS PERCENT AUTO 75.3 % (40.0-78.1); PLATELET COUNT,PLT 243 K/uL (130-375); RED BLOOD CELL COUNT 3.76 M/uL (3.77-5.24); WHITE BLOOD CELL COUNT,WBC 8.4 K/uL (3.2-11.0)
[2023-03-09 05:59] LABS: BASOPHILS ABSOLUTE AUTO 0.02 K/uL (0.00-0.10)
[2023-03-09 06:15] LABS: ANION GAP 7.4 mmol/L (5.0-14.0); CALCIUM 8.9 mg/dL (8.5-10.1); EST CRCL DRUG DOSING (CG) 69.4 mL/min; MAGNESIUM 2.1 mg/dL (1.8-2.4); POTASSIUM,K 4.7 mmol/L (3.6-5.2)
[2023-03-09] MEDS: busPIRone 10 MG Tab PO SCH ×3 (08:30→20:43)
[2023-03-09] MEDS: Divalproex Sodium Delayed-Release 250 MG Tab.CR PO SCH ×2 (08:30→20:43)
[2023-03-09] MEDS: Gabapentin 400 MG Cap PO SCH ×2 (08:30→20:44)
[2023-03-09] MEDS: Lisinopril 20 MG Tab PO SCH (08:31)
[2023-03-09] MEDS: Estradiol 0.5 MG Tab PO SCH (08:31)
[2023-03-09] MEDS: LORazepam 0.5 MG Tab PO SCH ×2 (08:31→20:43)
[2023-03-09] MEDS ORDERED: Enoxaparin 40 MG/0.4 ML Syringe SUBCUT SCH (18:00)
[2023-03-09] MEDS: Doxepin 10 MG Cap PO SCH (20:44)
[2023-03-09] MEDS ORDERED: Sertraline 50 MG Tab PO SCH (21:00)
[2023-03-10] MEDS: Acetaminophen 325 MG Tab PO PRN (01:11)
[2023-03-10 05:47] VITALS: BP 131/69; PULSE 73
[2023-03-10] MEDS: Lisinopril 20 MG Tab PO SCH (08:24)
[2023-03-10] MEDS: LORazepam 0.5 MG Tab PO SCH (08:24)
[2023-03-10] MEDS: Gabapentin 400 MG Cap PO SCH (08:25)
[2023-03-10] MEDS: busPIRone 10 MG Tab PO SCH (08:25)
[2023-03-10] MEDS: Estradiol 0.5 MG Tab PO SCH (08:26)
[2023-03-10] MEDS: Divalproex Sodium Delayed-Release 250 MG Tab.CR PO SCH (08:26)
== END 2023-03-10 10:40 | disposition home or self-care (01) ==
LOC: JP.ED 10:09 → JP.MS 14:52
PROVIDERS: ADMIT Hospitalist; ATTEND Hospitalist
DX: R41.0 Disorientation, unspecified (principal); N17.9 Acute kidney failure, unspecified; I10 Essential (primary) hypertension; M19.90 Unspecified osteoarthritis, unspecified site; G43.909 Migraine, unspecified, not intractable, without status migrainosus; F32.A Depression, unspecified; F41.0 Panic disorder [episodic paroxysmal anxiety]; E66.01 Morbid (severe) obesity due to excess calories; Z79.899 Other long term (current) drug therapy; Z20.822 Contact with and (suspected) exposure to COVID-19; Z68.42 Body mass index [BMI] 45.0-49.9, adult
CPT/HCPCS: 36415; 70450; 71045; 73070; 80048; 80053; 80143; 80179; 80305; 80307; 81001; 82140; 83605; 83735; 84145; 85025; 86140; 87635; 96361; 96372; 96374; 97161; 99285; A9270; G0378; J1650; J1885; J3490; J7030; 99223; 99232; 99238; 99284; U0002

== ENCOUNTER 2023-04-15 16:32 | Emergency (ER) | payer OTHER ==
[2023-04-15] MEDS ORDERED: Lactated Ringers 1,000 ML IV ONE (17:11)
[2023-04-15 17:24] LABS: HEMATOCRIT 31.8 % (34.3-46.0); HEMOGLOBIN 9.8 g/dL (11.2-15.5); MEAN CORPUSCULAR HEMOGLOBIN 28.6 pg (31.6-35.5); MEAN CORPUSCULAR HGB CONC 30.8 g/dL (31.6-35.5); MEAN CORPUSCULAR VOLUME 92.7 fL (81.4-99.0); RED BLOOD CELL COUNT 3.43 M/uL (3.77-5.24); WHITE BLOOD CELL COUNT,WBC 10.4 K/uL (3.2-11.0)
[2023-04-15 17:48] LABS: A/G RATIO 0.8 (1.2-2.2); ALANINE AMINOTRANSFERASE,ALT 39 U/L (12-78); ALBUMIN 2.9 g/dL (3.4-5.0); ALKALINE PHOSPHATASE 65 U/L (46-116); ASPARTATE AMNIOTRANSFERASE,AST 136 U/L (15-37); BILIRUBIN TOTAL 0.4 mg/dL (0.2-1.0); BLOOD UREA NITROGEN,BUN 44 mg/dL (7-18); CALCIUM 8.4 mg/dL (8.5-10.1); CARBON DIOXIDE,CO2 28 mmol/L (21-32); CHLORIDE,CL 98 mmol/L (100-108); EST CRCL DRUG DOSING (CG) 16.91 mL/min; ESTIMATED GFR 12 mL/min (>60); GLUCOSE RANDOM 107 mg/dL (74-106); POTASSIUM,K 5.8 mmol/L (3.6-5.2); PROTEIN TOTAL,TP 6.5 g/dL (6.4-8.2); SODIUM,NA 132 mmol/L (140-148)
[2023-04-15 17:52] LABS: ANION GAP 11.8 mmol/L (5.0-14.0); CREATININE 4.4 mg/dL (0.6-1.0)
[2023-04-15 18:39] VITALS: PULSE 100
[2023-04-15 20:37] VITALS: BP 114/78
== END 2023-04-15 20:38 ==
LOC: JP.ED 16:32
DX: R09.02 Hypoxemia (principal); I10 Essential (primary) hypertension; E66.9 Obesity, unspecified; Z68.42 Body mass index [BMI] 45.0-49.9, adult
CPT/HCPCS: 36415; 71045; 71250; 74176; 80053; 83605; 83880; 84484; 84703; 85027; 93005; 93010; 96360; 99285; J7120

== ENCOUNTER 2024-06-06 13:34 | Emergency (ER) | payer MEDICAID, OTHER ==
[2024-06-06 14:37] LABS: BASOPHILS ABSOLUTE AUTO 0.06 K/uL (0.00-0.10); BASOPHILS PERCENT AUTO 0.8 % (0.1-1.3); EOSINOPHILS ABSOLUTE AUTO 0.31 K/uL (0.00-0.40); EOSINOPHILS PERCENT AUTO 4.4 % (0.0-5.4); HEMATOCRIT 36.5 % (34.3-46.0); HEMOGLOBIN 12.1 g/dL (11.2-15.5); IMMATURE GRAN ABSOLUTE AUTO 0.01 K/uL (0.00-0.23); IMMATURE GRAN PERCENT AUTO 0.1 % (0.0-0.7); LYMPHOCYTES ABSOLUTE AUTO 2.33 K/uL (0.8-3.3); LYMPHOCYTES PERCENT AUTO 32.8 % (11.4-47.7); MEAN CORPUSCULAR HEMOGLOBIN 29.9 pg (31.6-35.5); MEAN CORPUSCULAR HGB CONC 33.2 g/dL (31.6-35.5); MEAN CORPUSCULAR VOLUME 90.1 fL (81.4-99.0); MONOCYTES PERCENT AUTO 9.8 % (3.3-12.6); NEUTROPHILS PERCENT AUTO 52.1 % (40.0-78.1); PLATELET COUNT,PLT 305 K/uL (130-375); RED BLOOD CELL COUNT 4.05 M/uL (3.77-5.24); WHITE BLOOD CELL COUNT,WBC 7.1 K/uL (3.2-11.0)
[2024-06-06] MEDS: Sodium Chloride 0.9% 1,000 ML IV SCH (14:38)
[2024-06-06] MEDS: Sodium Chloride 0.9% 10 ML Syringe FLUSH PRN (14:39)
[2024-06-06 15:01] LABS: A/G RATIO 1.1 (1.2-2.2); ALANINE AMINOTRANSFERASE,ALT 13 U/L (12-78); ALBUMIN 3.7 g/dL (3.4-5.0); ALKALINE PHOSPHATASE 69 U/L (46-116); ASPARTATE AMNIOTRANSFERASE,AST 13 U/L (15-37); BILIRUBIN TOTAL 0.4 mg/dL (0.2-1.0); BLOOD UREA NITROGEN,BUN 22 mg/dL (7-18); CALCIUM 9.2 mg/dL (8.5-10.1); CARBON DIOXIDE,CO2 28 mmol/L (21-32); CHLORIDE,CL 101 mmol/L (100-108); CREATININE 1.9 mg/dL (0.6-1.0); EST CRCL DRUG DOSING (CG) 38.73 mL/min; ESTIMATED GFR 32 mL/min (>60); GLUCOSE RANDOM 102 mg/dL (74-106); PROTEIN TOTAL,TP 7.1 g/dL (6.4-8.2); SODIUM,NA 138 mmol/L (140-148)
[2024-06-06 15:18] LABS: TROPONIN I HIGH SENSITIVITY < 4.0 pg/mL (<=60.3)
[2024-06-06 15:34] VITALS: BP 96/30; PULSE 70
[2024-06-06 16:01] LABS: APPEARANCE,URINE CLEAR (CLEAR); BILIRUBIN,URINE NEGATIVE (NEGATIVE); COLOR,URINE YELLOW (YELLOW); GLUCOSE,URINE NEGATIVE (NEGATIVE); KETONES,URINE NEGATIVE (NEGATIVE); LEUKOCYTE ESTERASE,URINE TRACE (NEGATIVE); NITRITE,URINE NEGATIVE (NEGATIVE); OCCULT BLOOD,URINE NEGATIVE (NEGATIVE); PROTEIN,URINE NEGATIVE (NEGATIVE); UROBILINOGEN,URINE 0.2 EU/dL (0.2-1.0)
[2024-06-06 16:11] LABS: RBC,URINE 0-5 (0-5)
[2024-06-06 16:12] LABS: AMORPHOUS SEDIMENT,URINE FEW; BACTERIA,URINE OCCASIONAL; EPITHELIAL CELLS,URINE FEW; MUCUS,URINE NOT SEEN; WBC,URINE 0-5 (0-5)
== END 2024-06-06 16:45 | disposition home or self-care (01) ==
LOC: JP.ED 13:34
DX: R55 Syncope and collapse (principal); I10 Essential (primary) hypertension; E66.9 Obesity, unspecified; Z90.49 Acquired absence of other specified parts of digestive tract; Z68.38 Body mass index [BMI] 38.0-38.9, adult; Z79.899 Other long term (current) drug therapy
CPT/HCPCS: 36415; 80053; 81001; 84484; 85025; 93005; 96360; 99284; J3490; J7030

== ENCOUNTER 2025-06-04 13:22 | Emergency (ER) | payer MEDICAID, OTHER ==
[2025-06-04 15:25] VITALS: BP 138/57; PULSE 80
== END 2025-06-04 17:26 | disposition home or self-care (01) ==
LOC: JP.ED 13:22
DX: M25.561 Pain in right knee (principal); I10 Essential (primary) hypertension; Z79.899 Other long term (current) drug therapy; X50.1XXA Overexertion from prolonged static or awkward postures, initial encounter
CPT/HCPCS: 73562-26-RT; 73562-RT; 99283